=== PATIENT | female | born 1985 | race African-American/Black ===

== ENCOUNTER 2016-08-09 12:36 | Emergency (ER) | payer SELFPAY ==
--- NOTE | 2016-08-09 14:06 | UC ---
Shoulder Pain HPI - HPI Summary HPI Summary: The patient comes in today for: 1. Left shoulder pain: Onset: 8 months ago. It never got better. It got worse. Palliative/provocative: Not moving it makes it better. Abduction makes it worse. Quality: Sharp Region: Posterior shoulder (superior to the scapula). Severity: 6/10 with rest. Time: Constant. Associated symptoms: Event: No injury. She saw her regular provider who did not say what her diagnosis was. She did not get any medication. X-ray of the shoulder in December of 2015 was "OK." Previous treatment: She has only taken Tylenol for it. * - History of Current Complaint Chief Complaint: UCUpperExtremity Stated Complaint: SHOULDER PAIN Time Seen by Provider: 08/09/16 14:00 Hx Last Menstrual Period: 07/22/16 ?: No - Allergies/Home Medications Allergies/Adverse Reactions: Allergies Allergy/AdvReac Type Severity Reaction Status Date / Time No Known Allergies Allergy Verified 08/09/16 13:10 Home Medications: Home Medications Acetaminophen [Tylenol] 2 tab PO Q4HR PRN 08/09/16 [History Confirmed 08/09/16] PMH/Surg Hx/FS Hx/Imm Hx Previously Healthy: Yes Endocrine History Of: Denies: Diabetes, Thyroid Disease, Hyperthyroidism, Hypothyroidism, Dyslipidemia Cardiovascular History Of: Denies: Cardiac Disorders, Hypertension, Pacemaker/ICD, Myocardial Infarction , Congestive Heart Failure, Atrial Fibrillation, Deep Vein Thrombosis, Bleeding Disorders Respiratory History Of: Denies: COPD, Asthma, Bronchitis, Pneumonia, Pulmonary Embolism GI/ History Of: Denies: Gastroesophageal Reflux, Ulcer, Gastrointestinal Bleed, Gall Bladder Disease, Kidney Stones, Diverticulitis, Renal Disease, Urosepsis Neurological History Of: Denies: TIA, CVA, Dementia, Seizures, Migraine Psychological History Of: Denies: Anxiety, Depression, Bipolar Disorder, Schizophrenia, Post Traumatic Stress Disorder Cancer History Of: Denies: Lung Cancer, Colorectal Cancer, Breast Cancer, Prostate Cancer, Cervical Cancer Other History Of: Negative For: HIV, Hepatitis B, Hepatitis C, Anticoagulant Therapy - Surgical History Surgical History: None Surgery Procedure, Year, and Place: 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 - Family History Known Family History: Positive: Hypertension Negative: Cardiac Disease - Social History Occupation: Employed Full-time Alcohol Use: None Substance Use Type: None Smoking Status (MU): Never Smoked Tobacco Household Exposure Type: Cigarettes Review of Systems Constitutional: Negative Skin: Negative Eyes: Negative ENT: Negative Respiratory: Negative Cardiovascular: Negative Gastrointestinal: Negative Genitourinary: Negative Musculoskeletal: Arthralgia, Myalgia All Other Systems Reviewed And Are Negative: Yes Physical Exam Triage Information Reviewed: Yes Appearance: Well-Appearing, No Pain Distress - When sitting., Well-Nourished, Obese Vital Signs: Initial Vital Signs Temp 98.3 F 08/09/16 13:11 Pulse 91 08/09/16 13:11 Resp 16 08/09/16 13:11 BP 120/67 08/09/16 13:11 Pulse Ox 98 08/09/16 13:11 Eyes: Positive: Conjunctiva Clear. Negative: Discharge ENT: Positive: Hearing grossly normal, Other: - NOt able to see the TM due to cerumen buildup.. Negative: Pharyngeal erythema, Nasal congestion, Nasal drainage Dental: Negative: Gross Decay/Caries @, Dental Fracture @ Neck: Positive: Supple, Nontender, No Lymphadenopathy. Negative: Nuchal Rigidity Respiratory: Positive: Lungs clear, No respiratory distress, No accessory muscle use. Negative: Rhonchi, Wheezing Cardiovascular: Positive: RRR, No Murmur Abdomen Description: Positive: Nontender, No Organomegaly, Soft Musculoskeletal: Positive: Other: - Left shoulder: She had tenderness to palpation of the trapezius superior to the left scapula and along the medial border of the left scapula. Palpation of these areas did reproduce her shoulder pain. There was also tenderness to palpation of the coracoid process and the biceps tendon on the left. There was tenderness to palpation of the AC joint and with abduction. Neurological: Positive: Alert, Muscle Tone Normal Psychological: Positive: Age Appropriate Behavior, Consolable Skin: Negative: rashes, breakdown Shoulder Course/Dx - Differential Dx/Diagnosis Provider Diagnoses: Left shoulder pain (supraspinatus and biceps tendonitis). Left shoulder muscle strain Discharge - Discharge Plan Condition: Stable Disposition: HOME Forms: *Work Release Referrals: [facility] [Outside] No Primary Care Phys,NOPCP [Primary Care Provider] - 1 Week (Please see your primary care provider in about 1-2 weeks to see how well you are doing. If you don't have a primary care provider, please contact the physician referral service. If you can't get in timely, please you may come back to see us until you can. If you get worse, please be seen sooner by us or the ER.)
== END 2016-08-09 14:30 | disposition home or self-care (01) ==
LOC: UCEAST 12:36
DX: M75.22 Bicipital tendinitis, left shoulder (principal); S46.912A Strain of unspecified muscle, fascia and tendon at shoulder and upper arm level, left arm, initial encounter; X58.XXXA Exposure to other specified factors, initial encounter; Y92.9 Unspecified place or not applicable
CPT/HCPCS: 99212; G0463

== ENCOUNTER 2016-09-23 21:42 | Emergency (ER) | payer OTHER ==
[2016-09-23] MEDS ORDERED: diPHENhydraMINE IV* 50 MG/ML 1 ml VIAL (BENADRYL) IV ONE (23:53)
[2016-09-23] MEDS ORDERED: Ketorolac INJ* 30 MG/ML 1 ML VIAL IV ONE (23:53)
[2016-09-23] MEDS ORDERED: NS 0.9% 1000 ML* 1,000 ML IV ONE (23:53)
[2016-09-23] MEDS ORDERED: Metoclopramide IV* 5 MG/ML 2 ML VIAL IV ONE (23:53)
--- NOTE | 2016-09-24 00:21 | ED ---
Influenza-Like Illness - HPI Summary HPI Summary: Patient presents with a cough and feeling of SOB since since yesterday. She has a recent history asthma and was given an inhaler by her PCP 5 days ago which she has used without relief. She also has a migraine that has not responded with her usual medication. She has felt febrile and has body aches. She denies neck stiffness, nasal congestion, wheezing, N/V/D or ear ache. - History of Current Complaint Chief Complaint: EDUpperRespComplaint Time Seen by Provider: 09/23/16 23:13 Hx Obtained From: Patient Onset/Duration: Gradual Onset Severity: Moderate Associated Signs & Symptoms: Fever - 101.7, Myalgia, Cough, Headache Related Hx: Possible Flu/Infectious Exposure - Allergy/Home Medications Allergies/Adverse Reactions: Allergies Allergy/AdvReac Type Severity Reaction Status Date / Time No Known Allergies Allergy Verified 08/09/16 13:10 PMH/Surg Hx/FS Hx/Imm Hx Endocrine/Hematology History: Denies: Hx Anticoagulant Therapy, Hx Diabetes, Hx Thyroid Disease Cardiovascular History: Denies: Hx Congestive Heart Failure, Hx Deep Vein Thrombosis, Hx Hypertension , Hx Myocardial Infarction, Hx Pacemaker/ICD Respiratory History: Reports: Other Respiratory Problems/Disorders - allergies to pets and outdoor allergens Denies: Hx Asthma, Hx Chronic Obstructive Pulmonary Disease (COPD), Hx Lung Cancer, Hx Pneumonia, Hx Pulmonary Embolism GI History: Denies: Hx Gall Bladder Disease, Hx Gastrointestinal Bleed, Hx Ulcer, Hx Urosepsis History: Denies: Hx Kidney Stones, Hx Renal Disease Neurological History: Denies: Hx Dementia, Hx Migraine, Hx Seizures, Hx Transient Ischemic Attacks (TIA) Psychiatric History: Denies: Hx Anxiety, Hx Depression, Hx Schizophrenia, Hx Bipolar Disorder - Surgical History Surgery Procedure, Year, and Place: 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 Infectious Disease History: No Infectious Disease History: Denies: Traveled Outside the [place] in Last 30 Days - Family History Known Family History: Positive: None, Hypertension Negative: Cardiac Disease - Social History Occupation: Unemployed Lives: With Family Alcohol Use: None Substance Use Type: Reports: None Smoking Status (MU): Never Smoked Tobacco Review of Systems Positive: Fever, Chills, Fatigue Negative: Sore Throat, Ear Ache Negative: Chest Pain Positive: Shortness Of Breath, Cough Negative: Abdominal Pain, Vomiting, Diarrhea, Nausea Positive: no symptoms reported Positive: Myalgia. Negative: Edema Positive: Headache. Negative: Weakness, Paresthesia, Numbness All Other Systems Reviewed And Are Negative: Yes Physical Exam Triage Information Reviewed: Yes Vital Signs On Initial Exam: Initial Vitals Temp Pulse Resp BP Pulse Ox 99.7 F 94 18 131/95 98 09/23/16 21:46 09/23/16 21:46 09/23/16 21:46 09/23/16 21:46 09/23/16 21:46 Vital Signs Reviewed: Yes Appearance: Positive: Well-Appearing, No Pain Distress, Obese Skin: Positive: Warm, Skin Color Reflects Adequate Perfusion, Dry, Soft Head/Face: Positive: Normal Head/Face Inspection Eyes: Positive: EOMI, LEVAR, Conjunctiva Clear ENT: Positive: Hearing grossly normal, Pharynx normal, TMs normal Neck: Positive: Supple, Nontender, No Lymphadenopathy Respiratory/Lung Sounds: Positive: Clear to Auscultation, Breath Sounds Present Cardiovascular: Positive: RRR Abdomen Description: Positive: Nontender, Soft. Negative: CVA Tenderness (R), CVA Tenderness (L) Bowel Sounds: Positive: Present Musculoskeletal: Negative: Edema Left, Edema Right Neurological: Positive: Sensory/Motor Intact, Alert, Oriented to Person Place, Time, CN Intact II-III, NV Bundle Intact Distally Psychiatric: Positive: Affect/Mood Appropriate AVPU Assessment: Alert Diagnostics - Vital Signs Vital Signs Temp Pulse Resp BP Pulse Ox 09/23/16 23:06 100.7 F 101 18 144/96 95 09/23/16 22:41 101.7 F 95 18 129/86 95 09/23/16 21:46 99.7 F 94 18 131/95 98 - Laboratory Lab Results: Negative influenza Lab Statement: Any lab studies that have been ordered have been reviewed, and results considered in the medical decision making process. Re-Evaluation - Re-Evaluation First Eval Change: Improved - headache has resolved. Flu Symptom Course/Dx - Course Course Of Treatment: Multiple attempts were made to draw the patient's blood without success. She will follow-up with her PCP if her symptoms persist for further evaluation, which can include blood work as well. - Diagnoses Differential Diagnosis/HQI/PQRI: Positive: Bronchitis, Influenza, Pneumonia, Upper Respiratory Infection Provider Diagnoses: Migraine, Viral syndrome Discharge - Discharge Plan Condition: Stable Disposition: HOME Patient Education Materials: Viral Syndrome (ED), Migraine Headache (ED) Forms: *Work Release Referrals: Erwin Hampton MD [Primary Care Provider] - Additional Instructions: Please follow-up with your primary care provider if symptoms persist. Use over the counter medication for your symptoms and your migraine medication as needed. Return to the emergency department if symptoms worsen.
[2016-09-24 02:01] VITALS: BP 112/77
== END 2016-09-24 02:21 | disposition home or self-care (01) ==
LOC: ED 21:42
DX: G43.909 Migraine, unspecified, not intractable, without status migrainosus (principal); B34.9 Viral infection, unspecified; R50.9 Fever, unspecified; R05 Cough; R51 Headache; R06.02 Shortness of breath; R53.83 Other fatigue
CPT/HCPCS: 87502; 96374; 96375; 99283; J1200; J1885

== ENCOUNTER 2016-12-30 11:51 | Emergency (ER) | payer OTHER ==
[2016-12-30 11:55] VITALS: BP 113/75
--- NOTE | 2016-12-30 13:14 | RAD ---
HISTORY: Right ankle pain, injury COMPARISONS: None VIEWS: 4, Frontal, lateral, and oblique views of the right ankle FINDINGS: BONE DENSITY: Normal. BONES: There is no displaced fracture. JOINTS: There is no arthropathy. ALIGNMENT: There is no dislocation. SOFT TISSUES: Unremarkable. OTHER FINDINGS: None. IMPRESSION: NO ACUTE OSSEOUS INJURY. IF SYMPTOMS PERSIST, RECOMMEND REPEAT IMAGING.
--- NOTE | 2016-12-30 14:00 | ED ---
Lower Extremity - HPI Summary HPI Summary: 31 female presents to ED with complaints of right ankle pain that began yesterday after tripping down some stairs. She twisted her ankle and has since had pain. Admits to swelling. Has been taking ibuprofen without relief. Last dose as last night. Trouble bearing weight although is somewhat able. Hurts to walk. Wearing joel bandage. No other injuries. Did not hit head. No bruising. No numbness/tingling. No PMHx. Has sprained ankle in the past. - History of Current Complaint Chief Complaint: EDExtremityLower Stated Complaint: RT ANKLE INJURY Time Seen by Provider: 12/30/16 11:59 Hx Obtained From: Patient Hx Last Menstrual Period: 07/22/16 Mechanism Of Injury: Fall From Height Of: - 3 steps when walking down, Twisted Onset of Pain: Immediate, Post Accident Onset/Duration: Days - 2 days Severity Initially: Moderate Severity Currently: Severe Pain Intensity: 10 Pain Scale Used: 0-10 Numeric Timing: Constant Location: Is Discrete @ - right ankle Character Of Pain: Sharp, Aching Associated Signs And Symptoms: Positive: Swelling. Negative: Redness, Bruising , Knee Pain Aggravating Factor(s): Standing, Ambulation, Movement, Weight Bearing Alleviating Factor(s): Rest Able to Bear Weight: Yes - causes pain - Allergies/Home Medications Allergies/Adverse Reactions: Allergies Allergy/AdvReac Type Severity Reaction Status Date / Time No Known Allergies Allergy Verified 12/30/16 12:23 PMH/Surg Hx/FS Hx/Imm Hx Endocrine/Hematology History: Denies: Hx Anticoagulant Therapy, Hx Diabetes, Hx Thyroid Disease Cardiovascular History: Denies: Hx Congestive Heart Failure, Hx Deep Vein Thrombosis, Hx Hypertension , Hx Myocardial Infarction, Hx Pacemaker/ICD Respiratory History: Reports: Other Respiratory Problems/Disorders - allergies to pets and outdoor allergens Denies: Hx Asthma, Hx Chronic Obstructive Pulmonary Disease (COPD), Hx Lung Cancer, Hx Pneumonia, Hx Pulmonary Embolism GI History: Denies: Hx Gall Bladder Disease, Hx Gastrointestinal Bleed, Hx Ulcer, Hx Urosepsis History: Denies: Hx Kidney Stones, Hx Renal Disease Neurological History: Denies: Hx Dementia, Hx Migraine, Hx Seizures, Hx Transient Ischemic Attacks (TIA) Psychiatric History: Denies: Hx Anxiety, Hx Depression, Hx Schizophrenia, Hx Bipolar Disorder - Surgical History Surgery Procedure, Year, and Place: 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 - Immunization History Immunizations Up to Date: Yes Infectious Disease History: No Infectious Disease History: Denies: Traveled Outside the [place] in Last 30 Days - Family History Known Family History: Positive: None, Hypertension Negative: Cardiac Disease - Social History Alcohol Use: None Substance Use Type: Reports: None Smoking Status (MU): Never Smoked Tobacco Review of Systems Constitutional: Negative Cardiovascular: Negative Respiratory: Negative Positive: Arthralgia, Myalgia, Decreased ROM, Edema - right ankle Skin: Negative Neurological: Negative All Other Systems Reviewed And Are Negative: Yes Physical Exam Triage Information Reviewed: Yes Vital Signs On Initial Exam: Initial Vitals Temp Pulse Resp BP Pulse Ox 97.6 F 88 16 113/75 97 12/30/16 11:53 12/30/16 11:53 12/30/16 11:53 12/30/16 11:53 12/30/16 11:53 Vital Signs Reviewed: Yes Appearance: Positive: Well-Appearing, Well-Nourished, Pain Distress - moderate with palpation and movement of right ankle Skin: Positive: Warm, Skin Color Reflects Adequate Perfusion, Dry. Negative: Cold, Cyanosis @, Pale, Erythema @ Head/Face: Positive: Normal Head/Face Inspection Eyes: Positive: Conjunctiva Clear ENT: Positive: Hearing grossly normal Neck: Positive: Supple, Nontender Respiratory/Lung Sounds: Positive: Clear to Auscultation, Breath Sounds Present , Rales, Rhonchi, Wheezes. Negative: Decreased Breath Sounds Cardiovascular: Positive: Normal, RRR, Pulses are Symmetrical in both Upper and Lower Extremities - 2+ pedal b/l. Negative: Murmur, Rub Musculoskeletal: Positive: Strength/ROM Intact - rest of MSK exam normal besides right ankle, Limited @ - right ankle due to pain with any ROM, Pain @ - palpation of lateral malleolous right ankle, Edema Right - ankle at lateral malleolous, Other - no crepitus, step off or obvious deformity. negative thomspon test, achilles intact. Negative: Interruption @, David Sign Left, David Sign Right Neurological: Positive: Normal, Sensory/Motor Intact - sensation intact, Alert, Oriented to Person Place, Time, CN Intact II-III, Reflexes Intact, NV Bundle Intact Distally, Unable to Assess Gait - due to pain, injury Psychiatric: Positive: Normal Diagnostics - Vital Signs Vital Signs Temp Pulse Resp BP Pulse Ox 12/30/16 11:54 97.6 F 88 16 113/75 98 12/30/16 11:53 97.6 F 88 16 113/75 97 - Laboratory Lab Statement: Any lab studies that have been ordered have been reviewed, and results considered in the medical decision making process. - Radiology right ankle Xray Interpretation: No Acute Changes - NO ACUTE OSSEOUS INJURY. IF SYMPTOMS PERSIST, RECOMMEND REPEAT IMAGING. Radiology Interpretation Completed By: Radiologist Lower Extremity Course/Dx - Course Course Of Treatment: given toradol for pain since she has not had any pain management today. iburpofen wasn't helping. x-ray obtained and negative. appears to be suffering from a sprain. RICE and NSAIDs. crutches, brace. follow up pcp. aware of worsening signs and symptoms to watch out for. - Diagnoses Differential Diagnosis/HQI/PQRI: Positive: Contusion, Dislocation, Fracture ( Closed), Sprain, Strain Provider Diagnoses: Right ankle sprain Discharge - Discharge Plan Condition: Stable Disposition: HOME Prescriptions: HYDROcodone/ACETAMIN 5-325 MG* [[place] 5-325 TAB*] 1 tab PO Q4H PRN #5 tab MDD 2 PRN Reason: Pain Patient Education Materials: Ankle Sprain (ED) Referrals: Erwin Hampton MD [Primary Care Provider] - Additional Instructions: Rest, ice and elevate ankle. Continue ibuprofen as desired for pain, starting tomorrow, you do not need to take any more tonight. Take with food. Supplement with pain medication prescribed in between only as needed. Crutches and not weight bearing. Follow up PCP If new symptoms develop, or worsening symptoms please seek medical attention.
[2016-12-30] MEDS ORDERED: Ketorolac INJ* 60 MG/2 ML VIAL IM ONE (14:27)
== END 2016-12-30 15:12 | disposition home or self-care (01) ==
LOC: ED 11:51
DX: S93.401A Sprain of unspecified ligament of right ankle, initial encounter (principal); W18.09XA Striking against other object with subsequent fall, initial encounter; Y92.9 Unspecified place or not applicable; W10.9XXA Fall (on) (from) unspecified stairs and steps, initial encounter
CPT/HCPCS: 96372; 99284; J1885

== ENCOUNTER 2017-06-07 08:43 | Day surgery (SDC) | payer OTHER ==
--- NOTE | 2017-06-03 09:03 | HP ---
PREOPERATIVE HISTORY AND PHYSICAL: DATE OF ADMISSION/SURGERY: 06/07/17 - OR [facility] DATE OF OFFICE VISIT/ENCOUNTER: 05/30/17 ATTENDING SURGEON: Dr. Shanda Breen.* (DICTATED BY MIRTHA MORILLO) PROCEDURE: Left wrist ganglion cyst excision. CHIEF COMPLAINT: Cyst, left wrist. HISTORY OF PRESENT ILLNESS: This is a 32-year-old female who complains of a painful mass on the dorsal aspect of her left wrist. She has had it for quite some time on and off since 2010, but recently it got about twice as big as it was before and now has become painful and bothersome. She rates the pain as 9/ 10. It does not limit her range of motion and she denies any associated numbness or tingling. She would like to have it removed surgically. PAST MEDICAL HISTORY: 1. History of back pain. 2. Asthma. PAST SURGICAL HISTORY: Cyst removal from face as a baby. CURRENT MEDICATIONS: 1. Claritin 10 mg daily. 2. EpiPen p.r.n. 3. Flonase allergy relief 15 mcg/ACT once per each nostril twice daily. 4. Symbicort 160-4.5 mcg/ACT 2 puffs twice a day. 5. Ventolin HFA inhaler 2 puffs 4 times a day p.r.n. 6. Zyrtec allergy 10 mg daily. ALLERGIES: No known drug allergies. The patient is allergic to tree nuts which cause anaphylaxis. FAMILY MEDICAL HISTORY: Noncontributory. 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 She denies tobacco use, recreational drug use and does not drink alcohol. REVIEW OF SYSTEMS: General: Negative for fevers, chills, or night sweats. No known anesthesia problems. HEENT: Negative for headache, lightheadedness, or syncopal episodes. Integumentary: Negative for abrasions, lesions, or open wounds. Cardiothoracic: Negative for hypertension, chest pain, palpitations, or edema. Pulmonary: Negative for shortness of breath with exertion, chronic cough, COPD. GI: Negative for nausea, vomiting, diarrhea, constipation, and GERD. : Negative for nocturia, urinary frequency or urgency, history of UTIs , or kidney problems. Musculoskeletal: Positive for current complaint. Neurological: Negative for paresthesias, numbness, history of seizure, stroke, or epilepsy. Endocrine: Negative for diabetes and thyroid issues. Hematologic : Negative for easy bruising, anemia, excessive bleeding, or history of DVT. Infectious Disease: Negative for history of MRSA, hepatitis C, HIV. PHYSICAL EXAMINATION GENERAL: Well-developed, well-nourished, 32-year-old female, in no acute distress. VITAL SIGNS: Height 5 feet 3 inches, weight 260 pounds. Pulse rate 74, blood pressure 110/76. HEENT: Normocephalic, atraumatic. Pupils are equal, round, and reactive to light and accommodation. Extraocular movements are intact. Throat is clear. NECK: Supple. No palpable lymph nodes. PULMONARY: Lungs are clear to auscultation bilaterally. No wheezes, rales, or rhonchi. CARDIOVASCULAR: Regular rate and rhythm. S1, S2. No murmurs, rubs, or gallops. No edema. ABDOMEN: Positive bowel sounds. Soft, nontender. NEUROLOGICAL: Alert and oriented x3. Cranial nerves II through XII are intact. Sensation is intact to light touch. PERIPHERAL VASCULAR: 2+ radial and ulnar pulses. Negative Pedro test. MUSCULOSKELETAL: On exam of her left wrist, there is a fairly large cystic mass on the dorsal aspect of the radiocarpal joint. It measures about 1.5 cm in diameter and is tender to palpation. She has full range of motion of the wrist, but pain is extreme. She can make a full fist. Skin is intact. Neurovascularly, function is intact. IMAGING STUDIES: AP, lateral, and oblique x-rays of her left wrist appeared normal. ASSESSMENT: Left dorsal wrist ganglion. PLAN: The patient is scheduled to undergo a left wrist ganglion cyst excision with Dr. Breen on 06/07/17. She will return to the office 10 to 14 days postop for followup and suture removal. A prescription for Tramadol was e-scribed to the patient's pharmacy for postoperative pain management. MIRTHA MORILLO [id number]/[facility] #: [id number] KATIA
[~2017-06-07 08:43] MED LIST: Buffered Lidocaine 0.9% SYRIN* 5 ML/SYR SYRINGE INTRADERM ONE; Lidocaine 1% INJ* 10 MG/ML 30 ML SDV ONE
[2017-06-07] MEDS ORDERED: fentaNYL* 50 MCG/ML 2 ML VIAL (100 MCG VIAL) ONE (09:51)
[2017-06-07] MEDS ORDERED: Propofol* 10 MG/ML 20 ML BTL IV PUSH ONE (09:51)
[2017-06-07] MEDS ORDERED: Midazolam* 1 MG/ML 2 ML VIAL (2 MG) ONE (09:51)
[2017-06-07] MEDS ORDERED: Naloxone* 0.4 MG/ML 1 ML VIAL IV PRN (10:01)
[2017-06-07 10:25] VITALS: BP 119/73
--- NOTE | 2017-06-07 21:13 | OP ---
DATE OF OPERATION: 06/07/17 [facility] DATE OF : 87 SURGEON: Dr. Breen. ELECTRICAL TEST TECHNICIAN: MIRTHA Osman ANESTHESIA: Local MAC. PRE-OP DIAGNOSIS: Left wrist ganglion. POST-OP DIAGNOSIS: Left wrist ganglion. OPERATIVE PROCEDURE: Removal, left wrist ganglion. ESTIMATED BLOOD LOSS: Zero. TOURNIQUET TIME: 10 minutes. INDICATIONS: Kenzie is a 32-year-old female who has a large painful mass on the dorsal aspect of her left wrist. She presents for removal. DESCRIPTION OF PROCEDURE: The patient was brought to the operating room, was given a sedation anesthetic and a local infiltration of 10 cc of 1% plain lidocaine overlying the left wrist mass. Skin of her left upper extremity was prepped and draped in the usual sterile fashion. The hand and forearm were exsanguinated and the tourniquet elevated to 250 mmHg. A transverse incision was made centered over the mass. We dissected bluntly through the subcutaneous tissue. Extensor tendons were retracted by the surgical rn, Bethany Almonte. The cyst was traced with 2 stalk down the wrist capsule and was removed with the small portion of the wrist joint capsule dorsal aspect of the scapholunate ligament and the edge of the capsule cauterized with the Bovie. The wound was irrigated and skin edges reapproximated with 4-0 nylon suture. The wound was dressed with Xeroform, 4x4, Webril, and an Flako wrap. The patient tolerated the procedure well and was brought to the recovery room in good condition. [id number]/[facility] #: [id number] KATIA
== END 2017-06-07 10:45 | disposition home or self-care (01) ==
LOC: OREAST 08:43
PROVIDERS: ATTEND Orthopaedic Surgery
DX: M67.432 Ganglion, left wrist (principal); J45.909 Unspecified asthma, uncomplicated
CPT/HCPCS: 81025; 88304; J2250; J2704; J3010

== ENCOUNTER 2017-07-29 10:33 | Emergency (ER) | payer MEDICAID, OTHER ==
[2017-07-29 11:59] LABS: ABS Basophils 0.1 10^3/ul (0-0.2); ABS Eosinophils 0.2 10^3/ul (0-0.6); ABS Lymphocytes 2.2 10^3/ul (1.0-4.8); ABS Monocytes 0.5 10^3/ul (0-0.8); ABS Neutrophils 3.8 10^3/ul (1.5-7.7); ABS Nucleated RBC 0 10^3/ul; Eosinophil % 2.9 % (0-6); Hematocrit 40 % (35-47); Hemoglobin 13.4 g/dl (12.0-16.0); Lymphocyte % 32.9 % (25-47); Mean Corpuscular HGB Conc 34 g/dl (31-36); Mean Corpuscular Hemoglobin 29 pg (27-31); Mean Corpuscular Volume 86 fL (80-97); Mean Platelet Volume 7.5 um3 (7.4-10.4); Nucleated Red Blood Cells % 0.1; Platelet Count 283 10^3/ul (150-450); Red Blood Count 4.58 10^6/ul (4.0-5.4); Red Cell Distribution Width 14 % (10.5-15); White Blood Count 6.8 10^3/ul (3.5-10.8)
[2017-07-29 12:08] LABS: INR 0.9 (0.77-1.02)
--- NOTE | 2017-07-29 12:10 | ED ---
Abdominal Pain/Female - HPI Summary HPI Summary: Patient here with upper abdominal pain for the past 4 days. This is "sharp and dull and constant ". Seems to be a little worse with eating foods such as fish , eggs and other fatty foods. Was able to drink water and pain was not as bad. She's tried Aleve without relief nor exacerbation. She reports associated symptoms of nausea however does not have any at present. Denies fevers, chills , vomiting, diarrhea, chest pain, shortness of breath, melena, hematochezia, vaginal irritation/discharge. Last bowel movement this morning which she reports as "green" which is normal for her - this was non-painful nor did it provide relief. Last menstrual period was 2 weeks ago - these are irregular and have been - she is unsure if she has PCOS - she was on control in the past which made cycle regular. However she gained weight so stopped taking these. No personal history of ovarian cysts, torsion or uterine issues however her sister has a history of ovarian cyst. She has a partner but denies sexual activity and no h/o STD's or vaginal infection. No h/o GERD. She does admit this pain happened once several years ago and she came to the emergency department for evaluation. She reports nothing was identified and her symptoms resolved on their own over time. - History of Current Complaint Chief Complaint: EDAbdPain Stated Complaint: ABD PAIN Time Seen by Provider: 07/29/17 11:11 Hx Obtained From: Patient Hx Last Menstrual Period: 07/22/16 Pain Intensity: 6 Allergies/Adverse Reactions: Allergies Allergy/AdvReac Type Severity Reaction Status Date / Time Tree Nuts Allergy anaphylaxis Verified 06/07/17 08:57 environmental Allergy sneezing, Uncoded 06/07/17 08:57 itchy eyes Home Medications: Home Medications Budesonide/Formote 160/4.5(NF) [Symbicort 160/4.5 (NF)] 2 puff INH BID 07/29/17 [History Confirmed 07/29/17] Cetirizine* [ZyrTEC 10 MG TAB*] 10 mg PO DAILY PRN 07/29/17 [History Confirmed 07/29/17] Ergocalciferol (Vitamin D2) [Vitamin D2] 50,000 unit PO WEEKLY 07/29/17 [ History Confirmed 07/29/17] Fluticasone NASAL SPRAY 50MCG* [Flonase NASAL SPRAY 50MCG*] 2 spray BOTH NARES DAILY 07/29/17 [History Confirmed 07/29/17] PMH/Surg Hx/FS Hx/Imm Hx Previously Healthy: Yes - admits to elevated LFT's, unsure why Endocrine/Hematology History: Denies: Hx Anticoagulant Therapy, Hx Diabetes, Hx Thyroid Disease Cardiovascular History: Denies: Hx Congestive Heart Failure, Hx Deep Vein Thrombosis, Hx Hypertension , Hx Myocardial Infarction, Hx Pacemaker/ICD, Other Cardiovascular Problems/ Disorders Respiratory History: Reports: Hx Asthma - will bring inhalers, Other Respiratory Problems/Disorders - allergies to pets and outdoor allergens Denies: Hx Chronic Obstructive Pulmonary Disease (COPD), Hx Lung Cancer, Hx Pneumonia, Hx Pulmonary Embolism GI History: Denies: Hx Gall Bladder Disease, Hx Gastrointestinal Bleed, Hx Ulcer, Hx Urosepsis History: Denies: Hx Kidney Stones, Hx Renal Disease Sensory History: Reports: Hx Contacts or Glasses - glasses Denies: Hx Hearing Aid Opthamlomology History: Reports: Hx Contacts or Glasses - glasses Neurological History: Reports: Hx Headaches Denies: Hx Dementia, Hx Migraine, Hx Seizures, Hx Transient Ischemic Attacks (TIA) Psychiatric History: Denies: Hx Anxiety, Hx Depression, Hx Schizophrenia, Hx Bipolar Disorder - Surgical History Surgery Procedure, Year, and Place: 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 Hx Anesthesia Reactions: No Infectious Disease History: No Infectious Disease History: Denies: Traveled Outside the [place] in Last 30 Days - Family History Known Family History: Positive: None, Hypertension Negative: Cardiac Disease - Social History Alcohol Use: None Substance Use Type: Reports: None Smoking Status (MU): Never Smoked Tobacco Review of Systems Constitutional: Negative Negative: Fever, Chills, Fatigue Cardiovascular: Negative Negative: Palpitations, Chest Pain Respiratory: Negative Negative: Shortness Of Breath, Cough Positive: Abdominal Pain, Nausea - intermittent. Negative: Vomiting, Diarrhea Genitourinary: Negative Negative: burning, dysuria, discharge, frequency, flank pain, hematuria, incontinence, pain, urgency Musculoskeletal: Negative Skin: Negative Neurological: Negative Psychological: Normal All Other Systems Reviewed And Are Negative: Yes Physical Exam Triage Information Reviewed: Yes Vital Signs On Initial Exam: Initial Vitals Temp Pulse Resp BP Pulse Ox 98.1 F 77 20 137/87 97 07/29/17 10:36 07/29/17 10:36 07/29/17 10:36 07/29/17 10:36 07/29/17 10:36 Vital Signs Reviewed: Yes Appearance: Positive: Well-Appearing, No Pain Distress, Obese Skin: Positive: Warm, Skin Color Reflects Adequate Perfusion, Dry Head/Face: Positive: Normal Head/Face Inspection Eyes: Positive: Normal, EOMI, Conjunctiva Clear - anicteric sclera ENT: Positive: Normal ENT inspection, Hearing grossly normal, Pharynx normal - mucosa moist, TMs normal. Negative: Nasal congestion, Nasal drainage Neck: Positive: Supple Respiratory/Lung Sounds: Positive: Clear to Auscultation, Breath Sounds Present. Negative: Rales, Rhonchi, Wheezes Cardiovascular: Positive: Normal, RRR, S1, S2 Abdomen Description: Positive: No Organomegaly - difficult to assess 2ndry to pt 's body habitus, Soft, Other: - Equivocal Stevens's sign - diffusely TTP over upper, mid and Left lower ab - no rebounding; RLQ is only area that is NTTP. Negative: CVA Tenderness (R), CVA Tenderness (L) Bowel Sounds: Positive: Present - distant bowel sounds Musculoskeletal: Positive: Normal, Strength/ROM Intact Neurological: Positive: Normal, Sensory/Motor Intact, Alert, Oriented to Person Place, Time, CN Intact II-III Psychiatric: Positive: Normal Diagnostics - Vital Signs Vital Signs Temp Pulse Resp BP Pulse Ox 07/29/17 10:36 98.1 F 77 20 137/87 97 - Laboratory Lab Results: Lab Results 07/29/17 Range/Units 11:48 WBC 6.8 (3.5-10.8) 10^3/ul RBC 4.58 (4.0-5.4) 10^6/ul Hgb 13.4 (12.0-16.0) g/dl Hct 40 (35-47) % MCV 86 (80-97) fL MCH 29 (27-31) pg MCHC 34 (31-36) g/dl RDW 14 (10.5-15) % Plt Count 283 (150-450) 10^3/ul MPV 7.5 (7.4-10.4) um3 Neut % (Auto) 56.5 (38-83) % Lymph % (Auto) 32.9 (25-47) % [place] % (Auto) 7.0 (0-7) % Eos % (Auto) 2.9 (0-6) % Baso % (Auto) 0.7 (0-2) % Absolute Neuts (auto) 3.8 (1.5-7.7) 10^3/ul Absolute Lymphs (auto) 2.2 (1.0-4.8) 10^3/ul Absolute Monos (auto) 0.5 (0-0.8) 10^3/ul Absolute Eos (auto) 0.2 (0-0.6) 10^3/ul Absolute Basos (auto) 0.1 (0-0.2) 10^3/ul Absolute Nucleated RBC 0 10^3/ul Nucleated RBC % 0.1 Result Diagrams: 07/29/17 11:48 07/29/17 11:48 Lab Statement: Any lab studies that have been ordered have been reviewed, and results considered in the medical decision making process. Abdominal Pain Fem Course/Dx - Course Course Of Treatment: Pt presents w/ 4 days h/o upper ab pain - has tried aleve only w/o relief. H/o same "several years ago" w/o known cause despite medical w/ u then. U/A w/ RBC's, bacteria and leukocytes. Possible UTI vs. contamination - pt would like to wait for final culture before starting an antibiotic as she has no urinary sx, no CVA tenderness and afebrile w/o h/o urinary tract infection. Other possibility is irritation of the liver/digestive tract from fatty infiltrate. She has had elevated liver enzymes since May 2017 without known cause or guidance for further testing for hepatitis, etc. Encouraged a liquid, fat-free diet for the next 48 hours and close follow-up with her PCP. Hepatitis panel intiated here - may review results w/ PCP. Reviewed danger s/sx of when to return to ED. Pt agrees w/ plan. - Diagnoses Provider Diagnoses: Abdominal pain, Hepatic steatosis Discharge - Sign-Out/Discharge Documenting (check all that apply): Discharge - Discharge Plan Condition: Stable Disposition: HOME Patient Education Materials: Acute Abdominal Pain (ED), Non-Alcoholic Fatty Liver Disease (ED) Referrals: Erwin Hampton MD [Primary Care Provider] - Additional Instructions: The definitive cause of your abdominal pain was not identified today. However, it is noted that your liver enzymes are elevated in conjunction with a "fatty liver". It is important that you reduce her overall dietary fat intake but especially over the next week. This may be replaced by a clear low residue diet and close follow-up with PCP. If you feel better, you may make another appointment at [facility] for guidance through healthy lifestyle programs to continue your success. Additionally, you may try antacids such as Tums and avoid NSAID's (ie, Advil, ibuprofen, Aleve, naproxen, Aspirin) *If symptoms worsen, return to the emergency department It was also noted that your urine may have an infection. You have opted to wait a couple of days for final results. If sympomts become more apparent by tomorrow (ie. pain with urination, urinary frequency, urinary urgency, etc), feel free to call for an antibiotic. - Billing Disposition and Condition Condition: STABLE Disposition: HOME
[2017-07-29 12:17] LABS: Urine Appearance Cloudy; Urine Blood Negative (Negative); Urine Color Yellow; Urine Ketones Negative (Negative); Urine Protein Negative (Negative); Urine Specific Gravity 1.017 (1.010-1.030); Urine Urobilinogen Negative (Negative)
--- NOTE | 2017-07-29 14:11 | RAD ---
INDICATION: Abdominal pain COMPARISON: None TECHNIQUE: Longitudinal and transverse scans of the right upper quadrant were obtained. Doppler interrogation of the hepatic and portal venous system was performed. FINDINGS: Liver: There is hepatic steatosis. There are no masses . The liver is normal in size measuring 16 cm in cephalocaudal dimension. Vessels: There is normal hepatic and portal venous flow. Bile ducts: There is no evidence of intrahepatic or extrahepatic ductal dilatation. The common duct measures 0.3 cm. Gallbladder: The sonographic appearance of the gallbladder is normal. There is no evidence of cholelithiasis, thickening of the gallbladder wall, or pericholecystic fluid. Pancreas: The visualized pancreas appears normal Right kidney: The right kidney is normal in size and echogenicity. There are no masses or calculi. There is no evidence of hydronephrosis. The right kidney measures 10.1 x 4.1 x 5.0 cm. IVC and aorta: The aorta and superior vena cava appear normal. Fluid: There is no ascites. Other: None. IMPRESSION: HEPATIC STEATOSIS. NORMAL GALLBLADDER.
[2017-07-29] MEDS ORDERED: Ondansetron ODT TAB* 4 MG PO ONE (15:12)
[2017-07-29 16:04] VITALS: BP 136/91
== END 2017-07-29 16:11 | disposition home or self-care (01) ==
LOC: ED 10:33
DX: R10.10 Upper abdominal pain, unspecified (principal); N28.89 Other specified disorders of kidney and ureter
CPT/HCPCS: 36415; 76705; 80053; 80074; 81003; 81015; 83605; 83690; 83735; 84702; 85025; 85610; 85730; 86140; 87086; 99282; A9270-GY

== ENCOUNTER 2017-10-19 17:55 | Emergency (ER) | payer MEDICAID, OTHER ==
[2017-10-19] MEDS ORDERED: Charcoal ACTIVATED* 25 GM/120 ML BTL PO ONE (18:26)
[2017-10-19 20:31] LABS: ABS Basophils 0 10^3/ul (0-0.2); ABS Eosinophils 0 10^3/ul (0-0.6); ABS Lymphocytes 1.4 10^3/ul (1.0-4.8); ABS Monocytes 0.8 10^3/ul (0-0.8); ABS Neutrophils 8.4 10^3/ul (1.5-7.7); ABS Nucleated RBC 0 10^3/ul; Eosinophil % 0.2 % (0-6); Hematocrit 36 % (35-47); Hemoglobin 12.4 g/dl (12.0-16.0); Lymphocyte % 12.8 % (25-47); Mean Corpuscular HGB Conc 34 g/dl (31-36); Mean Corpuscular Hemoglobin 29 pg (27-31); Mean Corpuscular Volume 85 fL (80-97); Mean Platelet Volume 8.2 um3 (7.4-10.4); Nucleated Red Blood Cells % 0; Platelet Count 255 10^3/ul (150-450); Red Blood Count 4.26 10^6/ul (4.00-5.40); Red Cell Distribution Width 13 % (10.5-15); White Blood Count 10.7 10^3/ul (3.5-10.8)
[2017-10-19 20:34] LABS: Urine Appearance Cloudy; Urine Blood Negative (Negative); Urine Color Yellow; Urine Ketones Trace (Negative); Urine Protein 1+(30 mg/dL) (Negative); Urine Red Blood Cell Absent (Absent); Urine Specific Gravity 1.023 (1.010-1.030); Urine Urobilinogen Negative (Negative); Urine White Blood Cell 2+(11-20/hpf) (Absent)
[2017-10-19 20:47] LABS: EGFR Non-African American 65.4 (>60)
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
[2017-10-20 04:54] LABS: EGFR Non-African American 71.2 (>60)
[2017-10-20 05:25] VITALS: BP 99/55
[2017-10-20] MEDS ORDERED: LORazepam TAB(*) 1 MG PO ONE ×2 (05:27→05:28)
[2017-10-20] MEDS ORDERED: LORazepam TAB(*) 1 MG ONE (05:31)
--- NOTE | 2017-11-05 11:27 | ED ---
Jorge Alberto Mancini Gabriel, scribed for Jeremias Clark MD on 10/20/17 at 0129 . Progress - Progress Note Progress Note: Pt was signed out from Dr. Souza awaiting MHE. After MHE by Dr. Nagy pt will be transfer. I discussed patietn care with [facility] who accepts the patient for admission. the accepting doctor is Dr. Suazo - Consult/PCP Time Called: 00:02 Course/Dx - Course Course Of Treatment: Pt was signed out from Dr. Souza awaiting MHE. After MHE by Dr. Nagy pt will be transfer. I discussed patietn care with [facility] who accepts the patient for admission. the accepting doctor is Dr. Suazo - Diagnoses Provider Diagnoses: Mood disorder due to known physiological condition, unspecified Discharge - Sign-Out/Discharge Documenting (check all that apply): Discharge/Admit/Transfer, Receiving Sign-Out Receiving patient FROM: Cl Souza - Discharge Plan Condition: Stable Disposition: PSYCHIATRIC FACILITY-OTHER Referrals: Erwin Hampton MD [Primary Care Provider] - The documentation as recorded by the Jorge Alberto vela Gabriel accurately reflects the service I personally performed and the decisions made by , Jeremias Clark MD.
== END 2017-10-20 05:26 ==
LOC: ED 17:55
DX: T39.312A Poisoning by propionic acid derivatives, intentional self-harm, initial encounter (principal); X58.XXXA Exposure to other specified factors, initial encounter; J45.909 Unspecified asthma, uncomplicated; Z82.49 Family history of ischemic heart disease and other diseases of the circulatory system; R00.0 Tachycardia, unspecified
CPT/HCPCS: 36415; 80053; 80307; 80320; 80329; 81003; 81015; 82803; 83605; 84443; 84702; 85025; 87086; 93005; 99284; A9270-GY; G0480

== ENCOUNTER 2018-02-23 12:10 | Emergency (ER) | payer OTHER ==
[2018-02-23 12:38] VITALS: BP 125/72
--- NOTE | 2018-02-23 13:13 | UC ---
Headache HPI - HPI Summary HPI Summary: Patient is 32 year old female , with past medical history significant for migraines since age 9 who presents today with left-sided headache for past 4 days, onset 02/18/18. Points to the left temporomandibular joint and left paracervical and left temporal area. this pain has continued since onset and is unable to lay on this side of her head. pt has tried otc pain relievers like ibuprofen, Motrin and Aleve without any help. There was some associated nausea but no vomiting. She denies any rash, visual disturbance or any motor or sensory loss. No sick contacts . Denies any fever, chills, cough chest pain or shortness of breath . No diaphoresis. Denies any abdominal pain, diarrhea or constipation. - History Of Current Complaint Chief Complaint: UCHeadache Stated Complaint: HEADACHE Time Seen by Provider: 02/23/18 13:11 Hx Obtained From: Patient Hx Last Menstrual Period: 07/22/16 ?: No - LMP February 04 Pain Intensity: 8 - Allergies/Home Medications Allergies/Adverse Reactions: Allergies Allergy/AdvReac Type Severity Reaction Status Date / Time Tree Nuts Allergy anaphylaxis Verified 02/23/18 12:38 environmental Allergy sneezing, Uncoded 02/23/18 12:38 itchy eyes PMH/Surg Hx/FS Hx/Imm Hx Previously Healthy: Yes Other Endocrine History: negative Other Cardiovascular History: negative Respiratory History: Asthma Other Respiratory History: negative Other GI/ History: negative Neurological History: Migraine - Since the age of 9 but does not take prophylaxis medications Other Neurological History: negative Other Psychological History: negative Other History Of: Negative For: HIV, Hepatitis B, Hepatitis C, Anticoagulant Therapy - Surgical History Surgical History: Yes Surgery Procedure, Year, and Place: 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 - Family History Known Family History: Positive: None, Hypertension Negative: Cardiac Disease - Social History Alcohol Use: Rare Substance Use Type: None Smoking Status (MU): Never Smoked Tobacco Household Exposure Type: Cigarettes Review of Systems Constitutional: Negative Skin: Negative Eyes: Negative ENT: Negative Respiratory: Negative Cardiovascular: Negative Gastrointestinal: Negative Genitourinary: Negative Motor: Negative Neurovascular: Negative Musculoskeletal: Other: - Left-sided neck pain Neurological: Headache Psychological: Negative Is Patient Immunocompromised?: No All Other Systems Reviewed And Are Negative: Yes Physical Exam - Summary Physical Exam Summary: Physical Exam: Const: Appears well. No signs of apparent distress present. Alert and oriented x 3. Musculo: Walks with a normal gait. Head/Face: Atraumatic, normocephalic on inspection. Eyes: EOMI and PERRLA in both eyes. Conjunctivae clear. No discharge noted ENT: Hearing normal, TM normal appearing bilaterally . Respiratory: Respirations are unlabored. Lungs clear to auscultation bilaterally, no wheezing , rhonchi or rales noted . CVS: Regular rate and Rhythm, S1S2 normal , no murmurs identified. Extremities: Peripheral circulation is grossly normal. Pulses 2+ Abdomen : Soft non tender , nondistended , Bowel sounds present . No guarding , rebound tenderness or rigidity noted. Skin: No lesions or rash located on the upper extremities or on the lower extremities. Neuro: Cranial nerves II to XII intact, motor and sensory intact. DTR Intact bilaterally. Mood is normal. Affect is normal. GCS of 15 Tenderness to palpation is noted at the TMJ, hurts with wide opening of the mouth C-spine: No midline tenderness. There is tenderness to palpation on the left paraspinal muscles. Has full range of motion but painful in flexion and extension Spurling test negative bilaterally Triage Information Reviewed: Yes Vital Signs: Initial Vital Signs Temp 98.8 F 02/23/18 12:35 Pulse 89 02/23/18 12:35 Resp 18 02/23/18 12:35 BP 125/72 02/23/18 12:35 Pulse Ox 100 02/23/18 12:35 Vital Signs Reviewed: Yes Headache Course/Dx - Course Course Of Treatment: During the visit today we discussed the findings which are consistent with left TMJ dysfunction and left cervical strain. We discussed further plan including option of formal physical therapy for the neck if no improvement over the next week. She was given an IM injection of Toradol 30 mg in the clinic. She will start taking naproxen 500 mg twice daily for the next week .I will prescribe the medication to the pharmacy . Patient expressed understanding . - Differential Dx/Diagnosis Provider Diagnoses: Left TMJ dysfunction. Left cervical strain with spasm of paraspinal muscles Discharge - Sign-Out/Discharge Documenting (check all that apply): Patient Departure All imaging exams completed and their final reports reviewed: No Studies - Discharge Plan Condition: Stable Disposition: HOME Prescriptions: Naproxen [Naproxen 500 mg tab] 500 mg PO BID PRN 7 Days #15 tablet.dr KEANE Reason: Pain Patient Education Materials: Cervical Strain (ED), Temporomandibular Disorder ( ED) Referrals: Erwin Hampton MD [Primary Care Provider] - 2 Days Additional Instructions: Please start taking the medication as prescribed to the pharmacy Follow up with your primary care doctor in 2 days. Return to Urgent care / ER if symptoms get worse. - Billing Disposition and Condition Condition: STABLE Disposition: Home
[2018-02-23] MEDS ORDERED: Ketorolac INJ* 30 MG/ML 1 ML VIAL IM ONE (14:22)
== END 2018-02-23 14:51 | disposition home or self-care (01) ==
LOC: UCEAST 12:10
DX: M26.602 Left temporomandibular joint disorder, unspecified (principal); S16.1XXA Strain of muscle, fascia and tendon at neck level, initial encounter; X58.XXXA Exposure to other specified factors, initial encounter; Y92.9 Unspecified place or not applicable; M62.838 Other muscle spasm
CPT/HCPCS: 96372; 99212; G0463; J1885

== ENCOUNTER 2018-09-10 12:26 | Emergency (ER) | payer OTHER ==
--- NOTE | 2018-09-10 13:01 | ED ---
Throat Pain/Nasal Congestion - HPI Summary HPI Summary: A 33 y/o F presents to ED c/o constant L eye pain onset 08/31/18. Patient does not remember getting anything into her eye, nor any trauma to her eye. Associated sx: intermittent flashes of light in the corner of her L eye -- multiple times a day; REESE and photophobia. She denies vision changes. - History of Current Complaint Chief Complaint: EDEyeProblem Time Seen by Provider: 09/10/18 12:59 Hx Obtained From: Patient Onset/Duration: Lasting Weeks, Still Present Severity: Mild - Allergies/Home Medications Allergies/Adverse Reactions: Allergies Allergy/AdvReac Type Severity Reaction Status Date / Time Tree Nuts Allergy anaphylaxis Verified 09/10/18 12:34 Home Medications: Home Medications Albuterol HFA INHALER* [Ventolin HFA Inhaler*] 1 puff INH Q4H PRN 09/10/18 [ History Confirmed 09/10/18] EPINEPHrine [Epipen] 0.3 mg IJ DAILY PRN 09/10/18 [History Confirmed 09/10/18] PMH/Surg Hx/FS Hx/Imm Hx Previously Healthy: No Endocrine/Hematology History: Denies: Hx Anticoagulant Therapy, Hx Diabetes, Hx Thyroid Disease Cardiovascular History: Denies: Hx Congestive Heart Failure, Hx Deep Vein Thrombosis, Hx Hypertension , Hx Myocardial Infarction, Hx Pacemaker/ICD, Other Cardiovascular Problems/ Disorders Respiratory History: Reports: Hx Asthma, Other Respiratory Problems/Disorders - allergies to pets and outdoor allergens Denies: Hx Chronic Obstructive Pulmonary Disease (COPD), Hx Lung Cancer, Hx Pneumonia, Hx Pulmonary Embolism GI History: Denies: Hx Gall Bladder Disease, Hx Gastrointestinal Bleed, Hx Ulcer, Hx Urosepsis History: Denies: Hx Kidney Stones, Hx Renal Disease Sensory History: Reports: Hx Contacts or Glasses - glasses Denies: Hx Hearing Aid Opthamlomology History: Reports: Hx Contacts or Glasses - glasses Neurological History: Reports: Hx Headaches Denies: Hx Dementia, Hx Migraine, Hx Seizures, Hx Transient Ischemic Attacks (TIA) Psychiatric History: Denies: Hx Anxiety, Hx Depression, Hx Schizophrenia, Hx Bipolar Disorder, Hx of Violent Episodes Against Others - Surgical History Surgery Procedure, Year, and Place: 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 Hx Anesthesia Reactions: No Infectious Disease History: No Infectious Disease History: Denies: Traveled Outside the [place] in Last 30 Days - Family History Known Family History: Positive: Hypertension Negative: Cardiac Disease - Social History Occupation: Employed Full-time Lives: Dormitory/Roommates - significant other Alcohol Use: Rare Hx Substance Use: No Substance Use Type: Reports: None Hx Tobacco Use: No Smoking Status (MU): Never Smoked Tobacco Review of Systems Eyes: Other - pos: L eye pain Positive: Photophobia, Other - pos: intermittent flashing light in corner of L eye. Negative: Blurred Vision, Diplopia Positive: Headache All Other Systems Reviewed And Are Negative: Yes Physical Exam - Summary Physical Exam Summary: Constitutional: Well-developed, Well-nourished, Alert. (-) Distressed Skin: Warm, Dry HENT: Normocephalic; Atraumatic Eyes: Conjunctiva normal Neck: Musculoskeletal ROM normal neck. (-) JVD, (-) Stridor, (-) Tracheal deviation Cardio: Rhythm regular, rate normal, Heart sounds normal; Intact distal pulses; The pedal pulses are 2+ and symmetric. Radial pulses are 2+ and symmetric. (-) Murmur Pulmonary/Chest wall: Effort normal. (-) Respiratory distress, (-) Wheezes, (-) Rales Abd: Soft, (-) tenderness, (-) Distension, (-) Guarding, (-) Rebound Musculoskeletal: (-) Edema Lymph: (-) Cervical adenopathy Neuro: Alert, Oriented x3 Psych: Mood and affect Normal Triage Information Reviewed: Yes Vital Signs On Initial Exam: Initial Vitals Temp Pulse Resp BP Pulse Ox 98.4 F 77 16 137/86 98 09/10/18 12:34 09/10/18 12:34 09/10/18 12:34 09/10/18 12:34 09/10/18 12:34 Vital Signs Reviewed: Yes Diagnostics - Vital Signs Vital Signs Temp Pulse Resp BP Pulse Ox 09/10/18 12:34 98.4 F 77 16 137/86 98 - Laboratory Lab Statement: Any lab studies that have been ordered have been reviewed, and results considered in the medical decision making process. EENT Course/Dx - Course Course Of Treatment: Patient is a 33 y/o F presenting with constant L eye pain onset 08/31/18. Associated sx: intermittent flashes of light in the corner of her L eye, REESE and photophobia. She denies vision changes otherwise. Consulted with Dr. Escalera optgaston, at Dr. Haque's office who says to send patient to the office now. Will discharge patient to f/u with Dr. Escalera. - Diagnoses Provider Diagnoses: Left eye pain - Provider Notifications Discussed Care Of Patient With: Lori Escalera - opthamology Time Discussed With Above Provider: 13:55 Instructed by Provider To: Send To Office Now Discharge - Sign-Out/Discharge Documenting (check all that apply): Patient Departure - D/C Patient Received Moderate/Deep Sedation with Procedure: No - Discharge Plan Condition: Stable Disposition: HOME Patient Education Materials: Eye Pain (ED) Print Language: ANGUILLAN Referrals: Erwin Hampton MD [Primary Care Provider] - Lori Escalera [Medical Doctor] - Additional Instructions: Go to Dr. Escalera's office today. They are expecting you by 2:45pm. - Billing Disposition and Condition Condition: STABLE Disposition: Home - Attestation Statements Document Initiated by Scribe: Yes Documenting Scribe: Valentin Ricardo Provider For Whom Scribe is Documenting (Include Credential): Dr. Michelle Bryant MD Scribe Attestation: I, kate Amayaed for Dr. Michelle Bryant MD on at 1602. Scribe Documentation Reviewed: Yes Provider Attestation: The documentation as recorded by the Valentin vela accurately reflects the service I personally performed and the decisions made by me, Dr. Michelle Bryant MD Status of Scribe Document: Viewed
[2018-09-10 14:24] VITALS: BP 118/74
== END 2018-09-10 14:24 | disposition home or self-care (01) ==
LOC: ED 12:26
DX: H57.12 Ocular pain, left eye (principal)
CPT/HCPCS: 99282

== ENCOUNTER 2018-11-22 20:08 | Emergency (ER) | payer OTHER ==
--- OUTSIDE RECORDS SUMMARY | 2018-11-22 20:20 | XMS REPORT | Continuity of Care Document ---
:1985 External Reference #:[id number] Author Name Lalito Orellana M.D. Address [address] [place] [address] Care Team Providers Name Role Phone Erwin Hampton M.D. Primary Care Physician Unavailable Payers Date Identification Numbers Payment Provider Subscriber Policy Number: [id number] [employer] [place] Kenzie Gerard PayID: [id number] [address] [place] [address] Problems Active Problems Provider Date Seasonal allergy Onset: Asthma Onset: Pain in eye Lalito Orellana M.D. 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 M.D. Suspension Taper as Directed Symbicort Unknown 160-4.5mcg/Act Aerosol Ventolin HFA Unknown 108(90Base) mcg/Act Aerosol Epinephrine use as directed Unknown 0.3mg/0.3ML Solution Auto-Inject Fluticasone Propionate Inhale 2 Sprays Unknown Into Each Nostril 50mcg/Act Suspension Every Day Zyrtec Allergy as needed Unknown 10mg Capsules Procedures Date Code Description Status 09/10/2018 80218 New Patient Comprehensive Exam Completed Encounters Type Date Location Provider Dx Diagnosis Office Visit 10/21/2018 Usama Haque, Lalito Orellana, H57.12 Ocular pain, left 1:45p , [facility] Plan of Treatment 10/28/2018 - Lalito Orellana M.D.H57.12 Ocular pain, left eyeComments:Smoking can increase the risk of developing or worsening any eye related disease, as well as affect your overall health. If you are a smoker, we strongly recommend that you quit.If you are not a smoker, we strongly recommend that you do not start. USE THE PREDNISOLONE DROP: USE 1 DROP 4 TIMES A DAY TO THE LEFT EYE FOR 1 WEEK. THEN DECREASE TO 1 DROP 3 TIMES A DAY TO THE LEFT EYE FOR 1 WEEKTHEN DECREASE TO 1 DROP 2 TIMES A DAY TO THE LEFT EYE FOR 1 WEEKTHEN DECREASE TO 1 DROP ONCE A DAY TO THE LEFT EYE FOR 1 WEEKFollow up:1 Month Follow Up At your next visit, we are not planning to dilate your eyes. However, if you have any changes in your vision or new symptoms, there are certain situations that require us to dilate your eyes. If Dr. Orellana requests any additional testing , that may require extra time. If you have any questions before your next appointment, please call our office at .
--- NOTE | 2018-11-22 21:04 | ED ---
Lower Extremity - HPI Summary HPI Summary: 33 yo female presents to [facility] with right anterior leg pain since last night. She tells me that late last night she was laying in bed and developed spontaneous anterior right lower leg pain that has continued into today. Worse with ambulation. She has not taken anything OTC for her discomfort. Denies injury. No recent travel. She does not smoke. No SOB, chest pain, or difficulty breathing. - History of Current Complaint Chief Complaint: EDExtremityLower Stated Complaint: "RT LEG PAIN PER PT" Time Seen by Provider: 11/22/18 21:04 Hx Obtained From: Patient Hx Last Menstrual Period: 07/22/16 Severity Initially: Severe Severity Currently: Severe Pain Intensity: 10 - Allergies/Home Medications Allergies/Adverse Reactions: Allergies Allergy/AdvReac Type Severity Reaction Status Date / Time Tree Nuts Allergy anaphylaxis Verified 11/22/18 20:13 Home Medications: Home Medications prednisoLONE 1% OPHTH.SUSP* [Pred Forte 1%*] 1 drop LEFT EYE DAILY 11/22/18 [ History Confirmed 11/22/18] PMH/Surg Hx/FS Hx/Imm Hx Endocrine/Hematology History: Denies: Hx Anticoagulant Therapy, Hx Diabetes, Hx Thyroid Disease, Hx Anemia Cardiovascular History: Denies: Hx Congestive Heart Failure, Hx Deep Vein Thrombosis, Hx Hypertension , Hx Myocardial Infarction, Hx Pacemaker/ICD, Other Cardiovascular Problems/ Disorders Respiratory History: Reports: Hx Asthma, Other Respiratory Problems/Disorders - allergies to pets and outdoor allergens Denies: Hx Chronic Obstructive Pulmonary Disease (COPD), Hx Lung Cancer, Hx Pneumonia, Hx Pulmonary Embolism GI History: Denies: Hx Gall Bladder Disease, Hx Gastrointestinal Bleed, Hx Ulcer, Hx Urosepsis History: Denies: Hx Dialysis, Hx Kidney Stones, Hx Renal Disease Sensory History: Reports: Hx Contacts or Glasses - glasses Denies: Hx Hearing Aid Opthamlomology History: Reports: Hx Contacts or Glasses - glasses Neurological History: Reports: Hx Headaches Denies: Hx Dementia, Hx Migraine, Hx Seizures, Hx Transient Ischemic Attacks (TIA) Psychiatric History: Denies: Hx Anxiety, Hx Depression, Hx Panic Disorder, Hx Schizophrenia, Hx Bipolar Disorder, Hx of Violent Episodes Against Others - Surgical History Surgical History: Yes Surgery Procedure, Year, and Place: 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 Hx Anesthesia Reactions: No Infectious Disease History: No Infectious Disease History: Denies: Traveled Outside the [place] in Last 30 Days - Family History Known Family History: Positive: Hypertension Negative: Cardiac Disease - Social History Lives: With Family Alcohol Use: Rare Hx Substance Use: No Substance Use Type: Reports: None Hx Tobacco Use: No Smoking Status (MU): Never Smoked Tobacco Review of Systems Constitutional: Negative Cardiovascular: Negative Respiratory: Negative Gastrointestinal: Negative Genitourinary: Negative Musculoskeletal: Other - right marion pain Skin: Negative Neurological: Negative Psychological: Normal All Other Systems Reviewed And Are Negative: Yes Physical Exam - Summary Physical Exam Summary: GENERAL: NAD. WDWN. No pain distress. Sitting comfortably on stretcher playing on phone SKIN: No rashes, sores, lesions, or open wounds. No erythema, abscess, or induration/cellulitis at site. CHEST: No accessory muscle use. Breathing comfortably and in no distress. CV: Pulses intact PT and DP. Cap refill <2seconds MSK: RIGHT LOWER LEG: Mild TTP over mid anterior tibia. Strength 5/5. No edema or obvious bony deformities. FROM without pain at right knee and ankle. Negative demar. NEURO: Alert. Sensations intact and symmetric B/L LEs PSYCH: Age appropriate behavior. Triage Information Reviewed: Yes Vital Signs On Initial Exam: Initial Vitals Temp Pulse Resp BP Pulse Ox 98.9 F 95 16 127/77 98 11/22/18 20:10 11/22/18 20:10 11/22/18 20:10 11/22/18 20:10 11/22/18 20:10 Vital Signs Reviewed: Yes Diagnostics - Vital Signs Vital Signs Temp Pulse Resp BP Pulse Ox 11/22/18 20:10 98.9 F 95 16 127/77 98 - Laboratory Lab Results: Laboratory Tests 11/22/18 21:32 D-Dimer, Quantitative 210 Lab Statement: Any lab studies that have been ordered have been reviewed, and results considered in the medical decision making process. - CT Right leg CT Interpretation Completed By: Radiologist Summary of CT Findings: IMPRESSION: There may be small osteochondroma or chronic periostitis involving the lateral. cortex of the shaft of the tibia which is bony protuberance measuring 8 x 5 mm. in cross section and 27 mm length. No mass lesion in this location and no signs. of aggressive bony lesion in this location. Lower Extremity Course/Dx - Course Course Of Treatment: XR right tib/fib: wet red with ?bony lesion on tibia. Discussed with pt and she agrees to CT to further assess. CT findings as above. D-dimer not elevated and low suspicion for DVT at this time. Richie's score 0. Discussed with pt and advised f/u with Orthopedics to establish stability of suspected benign bone tumor. She was offered toradol in the ED, but declined and wished to take ibuprofen. Advised to rest, ice, and elevate her leg. - Diagnoses Provider Diagnoses: Bone tumor, Pain in right marion Discharge - Sign-Out/Discharge Documenting (check all that apply): Patient Departure Patient Received Moderate/Deep Sedation with Procedure: No - Discharge Plan Condition: Stable Disposition: HOME Patient Education Materials: Benign Bone Tumor (DC) Referrals: Erwin Hampton MD [Primary Care Provider] - Cristo Romo MD [Medical Doctor] - As Soon As Possible Additional Instructions: If you develop a fever, shortness of breath, chest pain, new or worsening symptoms - please call your PCP or go to the ED immediately. There appears to be a small benign (non-cancerous) growth on your bone. I recommend that you rest, ice, and elevate your leg to decrease pain and call Orthopedics at the number below to schedule a follow up within 1 week for a recheck - Billing Disposition and Condition Condition: STABLE Disposition: Home
[2018-11-22] MEDS ORDERED: Ibuprofen TAB* 600 MG PO ONE (23:45)
[2018-11-23 00:08] VITALS: BP 137/89
== END 2018-11-23 | disposition home or self-care (01) ==
LOC: ED 20:08
DX: M79.661 Pain in right lower leg (principal); D49.2 Neoplasm of unspecified behavior of bone, soft tissue, and skin; J45.909 Unspecified asthma, uncomplicated
CPT/HCPCS: 36415; 85379; 99282; A9270-GY

== ENCOUNTER 2018-12-22 15:15 | Emergency (ER) | payer OTHER ==
--- OUTSIDE RECORDS SUMMARY | 2018-12-22 15:55 | XMS REPORT | Summary of Care ---
:1985 Author Organization [facility] Address [address] [facility] [place] [address] Care Team Providers Name Role Phone Avitia Ehsan Brito DO Primary Care Provider Reason for Visit Reason Comments Follow-up SXD Encounter Details Date Type Department Care Team Description 12/09/2018 Office Visit [facility], Obesity, Class III, BMI 40-49.9 (morbid obesity) ([facility]) (Primary Dx); Bariatrics - Lisset Fajardo MD Pain of lower extremity, unspecified laterality; [address] [facility] [place] [facility] [place]HELSE[place] (obstructive sleep apnea); [address] [place] [address] Elevated hemoglobin A1c [place] [address] Allergies Active Allergy Reactions Severity Noted Date Comments Environmental Other 09/27/2017 Asthma, runny nose Mold Respiratory Reaction 11/01/2017 Nuts Anaphylaxis High 09/27/2017 Tree Nuts documented as of this encounter (statuses as of 12/11/2018) Medications Medication Sig Dispensed Refills Start Date End Date Status budesonide-formoterol Take 2 INHL by 0 Active fumarate (SYMBICORT) inhalation TWICE 160-4.5 MCG/ACT DAILY. Inhalation Aerosol Albuterol Sulfate Take by 0 Active (VENTOLIN HFA IN) inhalation. EPINEPHrine (EPIPEN IJ) by Injection 0 Active route. FLUTICASONE FUROATE IN Take by 0 Active inhalation. Cetirizine HCl (ZYRTEC Take 10 mg by 0 Active PO) mouth. prednisoLONE acetate 1 Drop FOUR TIMES 0 Active (PRED FORTE) 1 % DAILY. Ophthalmic Suspension Cholecalciferol Take 1 Tab by 8 Tab 1 11/11/2018 Active (VITAMIN D3) 146[address] mouth EVERY 7 units Oral Tab DAYS. documented as of this encounter (statuses as of 12/11/2018) Active Problems Problem Noted Date Obesity, Class III, BMI 40-49.9 (morbid obesity) 11/01/2017 CHELSEY (obstructive sleep apnea) 11/01/2017 Stress 11/01/2017 documented as of this encounter (statuses as of 12/11/2018) Immunizations Name Administration Dates Next Due TDAP Vaccine 11/03/2018 documented as of this encounter Social History Tobacco Use Types Packs/Day Years Used Date Never Smoker Smokeless Tobacco: Never Used Alcohol Use Drinks/Week oz/Week Comments Not Currently Sex Assigned at Date Recorded Not on file Job Start Date Occupation Industry Not on file Not on file Not on file Travel History Travel Start Travel End No recent travel history available. documented as of this encounter Last Filed Vital Signs Vital Sign Reading Time Taken Comments Blood Pressure 112/76 12/09/2018 10:51 AM EDT Pulse 91 12/09/2018 10:51 AM EDT Temperature - - Respiratory Rate - - Oxygen Saturation 98% 12/09/2018 10:51 AM EDT Inhaled Oxygen Concentration - - Weight 115.8 kg (255 lb 6.4 oz) 12/09/2018 10:51 AM EDT Height 160 cm (5' 3") 12/09/2018 10:51 AM EDT Body Mass Index 45.24 12/09/2018 10:51 AM EDT documented in this encounter Progress Notes Tana Perera MD - 12/09/2018 11:00 AM EDT PATIENT: Kenzie Gerard : 1985 DATE OF SERVICE: 12/09/2018 REFERRING PRACTITIONER: Other PRIMARY CARE PROVIDER: Ehsan Avitia Chief Complaint Patient presents with Follow-up SXD HISTORY OF PRESENT ILLNESS: Kenzie Gerard is a 33-y.o. female who presents for follow up treatment of obesity and related diseases. She reports that she went to the ED with right leg pain and xray showed a bone tumor. Her dietary compliance as reported is fair. The patient is not skipping meals. She is keeping a consistent food journal. She is eating about 800 to 1000 calories per day. She is generally getting adequate protein. The patient reports not a lot of exercise due to diffuse joint pain. She has an appointment with rheumatology but the earliest she could be seen is the end of March. Past Medical History: Diagnosis Date Asthma Back pain Irregular periods/menstrual cycles CHELSEY (obstructive sleep apnea) on cpap No past surgical history on file. Family History Problem Relation Age of Onset Depression/Depressed Sister Asthma Brother Social History Tobacco Use Smoking status: Never Smoker Smokeless tobacco: Never Used Substance Use Topics Alcohol use: Not Currently Current Outpatient Medications Medication Sig Albuterol Sulfate (VENTOLIN HFA IN) Take by inhalation. budesonide-formoterol fumarate (SYMBICORT) 160-4.5 MCG/ACT Inhalation Aerosol Take 2 INHL by inhalation TWICE DAILY. Cetirizine HCl (ZYRTEC PO) Take 10 mg by mouth. Cholecalciferol (VITAMIN D3) 89032 units Oral Tab Take 1 Tab by mouth EVERY 7 DAYS. EPINEPHrine (EPIPEN IJ) by Injection route. FLUTICASONE FUROATE IN Take by inhalation. prednisoLONE acetate (PRED FORTE) 1 % Ophthalmic Suspension 1 Drop FOUR TIMES DAILY. No current facility-administered medications for this visit. Allergies Allergen Reactions Nuts Anaphylaxis Tree Nuts Environmental Other Asthma, runny nose Mold Respiratory Reaction REVIEW OF SYSTEMS: CONSTITUTIONAL: Negative RESPIRATORY: Negative CARDIOVASCULAR: Negative GASTROINTESTINAL: Negative. GENITOURINARY:Negative MUSCULOSKELETAL: Negative NEUROLOGICAL: Negative. PSYCH: Negative. There are no exam notes on file for this visit. PHYSICAL EXAMINATION: VITALS: BP 112/76 | Pulse 91 | Ht 5' 3" (1.6 m) | Wt 255 lb 6.4 oz (115.8 kg ) | SpO2 98% | ? No | BMI 45.24 kg/m BODY COMPOSITION AND MEASUREMENTS: BODY COMPOSITION HISTORY Body Composition 11/04/2018 11/11/2018 12/09/2018 Weight 253 lb 249 lb 6.4 oz 255 lb 6.4 oz LEAN BODY MASS (lbs) - 120.2 124.3 BODY FAT MASS (lbs) - 129.2 131.2 BMI (Calculated) 44.82 44.18 45.24 Body Fat % - 51.8 51.3 BASAL METABOLIC RATE (kcal) - 1548 1588 EXCESS BODY FAT (lbs) - 93.3 93.9 VISCERAL FAT AREA (cm2) - 269.9 265 LEAN BODY MASS DEFICIT (lbs) - 0 0 NECK CIRCUMFERENCE (in) - - - WAIST CIRCUMFERENCE (in) - - - HIP CIRCUMFERENCE (in) - - - GENERAL: No acute distress; morbidly obese PULMONARY: Clear to auscultation bilaterally CARDIOVASCULAR: Regular rate and rhythm; no murmurs, no rubs, no gallops ABDOMEN: Soft, non tender, no organomegaly, no masses appreciated. truncal adiposity present MUSCULOSKELETAL: no clubbing, cyanosis or edema NEUROLOGICAL: Alert and oriented x 3 PSYCH: Appropriate mood and affect LABORATORY STUDIES: Triglycerides Date Value Ref Range Status 11/03/2018 74 <150 mg/dl Final HDL Cholesterol Date Value Ref Range Status 11/03/2018 51 >50 mg/dl Final LDL Cholesterol Date Value Ref Range Status 11/03/2018 106 <100 MG/DL Final TSH Date Value Ref Range Status 11/03/2018 1.48 0.47 - 4.68 uIu/ml Final IMPRESSION: ICD-9-CM ICD-10-CM 1. Obesity, Class III, BMI 40-49.9 (morbid obesity) (HCC) 278.01 E66.01 2. Pain of lower extremity, unspecified laterality 729.5 M79.606 3. CHELSEY (obstructive sleep apnea) 327.23 G47.33 4. Elevated hemoglobin A1c 790.29 R73.09 PLAN: Kenzie Gerard is a 33-y.o. year-old female with Body mass index is 45.24 kg/ m.. Obesity Class III Weight is increased 6.0 lbs in the interim; this reflects a(n) increase in lean body mass of 4.1 lbs(3.1 lbs of which was total body water) and increase in fat mass of 2.0 lbs Continue with 1100 calories per day; 30 g protein per meal; 30 g carbs per meal Moderate intensity exercise for 30 minutes, at least 5 days per week as she is able to. ? Bone tumor on right leg Will request records Elevated A1c - 5.8 Carb restriction and exercise as above Sleep apnea Consistent use of CPAP Weight loss Follow up: 4 weeks Author: Tana Perera MD 12/11/2018 14:47 documented in this encounter Plan of Treatment Date Type Specialty Care Team Description 01/06/2019 Office Visit Bariatrics Geeta Wagoner, RD 1 [place] [id number] 01/06/2019 Office Visit Bariatrics Keyon Escamilla, PhD [address] [place] [id number] 01/06/2019 Bariatric Surg Bariatrics Nurse/clinical support 01/09/2019 Hospital Encounter Nehemiah Barbosa MD Short Procedure 1 [place] [id number] 01/09/2019 Surgery Nehemiah Barbosa MD ENDOSCOPY UPPER GI 1 [place] [id number] 01/09/2019 GI Procedure Gastroenterology Nehemiah Barbosa MD [address] [place] [id number] 01/19/2019 Office Visit Bariatrics Tana Perera MD [address] [place] [id number] Health Maintenance Due Date Last Done Comments PAP SMEAR 1985 INFLUENZA VACCINE (#1) 2019 DEPRESSION SCREENING 11/04/2019 11/03/2018, 11/03/2018 HPV IMMUNIZATION SERIES Aged Out No longer eligible based on patient's age to complete this topic MENINGOCOCCAL VACCINE IMM Aged Out No longer eligible based on patient's age to complete this topic PNEUMOCOCCAL 0-64 YRS Aged Out No longer eligible based on patient's age to complete this topic documented as of this encounter Results Not on filedocumented in this encounter Visit Diagnoses Diagnosis Obesity, Class III, BMI 40-49.9 (morbid obesity) (HCC) - Primary Morbid obesity Pain of lower extremity, unspecified laterality CHELSEY (obstructive sleep apnea) Obstructive sleep apnea (adult) (pediatric) Elevated hemoglobin A1c Other abnormal blood chemistry documented in this encounter documented as of this encounter
--- OUTSIDE RECORDS SUMMARY | 2018-12-22 15:55 | XMS REPORT | Continuity of Care Document ---
:1985 External Reference #:[id number] Author Name Lalito Orellana M.D. Address [address] [place] [address] Care Team Providers Name Role Phone Erwin Hampotn M.D. - Family Care Team Information Manager Validation Medicine Problems Active Problems Provider Date Seasonal allergy Onset: Asthma Onset: Pain in eye Lalito Orellana M.D. Onset: 09/10/2018 Social History Type Date Description Comments Sex Unknown ETOH Use Denies alcohol use Tobacco Use Start: Unknown Patient has never smoked Recreational Drug Use Denies Drug Use Smoking Status Reviewed: 12/09/18 Patient has never smoked Allergies, Adverse Reactions, Alerts Active Allergies Reaction Severity Comments Date Tree Nuts 09/10/2018 Medications Active Medications SIG Qnty Indications Ordering Provider Date Symbicort Unknown 160-4.5mcg/Act Aerosol Ventolin HFA Unknown 108(90Base) mcg/Act Aerosol Epinephrine use as directed Unknown 0.3mg/0.3ML Solution Auto-Inject Fluticasone Inhale 2 Sprays Unknown Propionate Into Each Nostril 50mcg/Act Every Day Suspension Zyrtec Allergy as needed Unknown 10mg Capsules History Medications Prednisolone Acetate 1 Drop, Left Eye 10ml H57.12 Lalito Orellana, 2018 - 1% Every 2 Hours. M.D. 12/01/2018 Suspension Taper as Directed Immunizations Description No Information Available Vital Signs Description No Information Available Results Description No Information Available Procedures Date Code Description Status 09/10/2018 89080 New Patient Comprehensive Exam Completed Medical Devices Description No Information Available Encounters Type Date Location Provider Dx Diagnosis Office Visit 10/28/2018 Usama Haque Lalito Orellana, H57.12 Ocular pain, left 8:00a pedro LANDAVERDE M.D. eye Office Visit 10/21/2018 Usama Alisha Haque, Lalito Orellana, H57.12 Ocular pain, left 1:45p pedro LANDAVERDE M.D. eye Assessments Date Code Description Provider 12/09/2018 Luisito7.12 Ocular pain, left eye Lalito Orellana M.D. 10/28/2018 H57.12 Ocular pain, left eye Lalito Orellana M.D. 10/21/2018 H57.12 Ocular pain, left eye Lalito Orellana M.D. 09/10/2018 H57.12 Ocular pain, left eye Lalito Orellana M.D. Plan of Treatment 12/09/2018 - Lalito Orellana M.D.H57.12 Ocular pain, left eyeComments:Smoking can increase the risk of developing or worsening any eye related disease, as well as affect your overall health. If you are a smoker, we strongly recommend that you quit.If you are not a smoker, we strongly recommend that you do not start. CALL THE OFFICE IF ANY SYMPTOMS RETURN TO SCHEDULE AN APPOINTMENT.Follow up:2 Year Follow Up DFE You can expect to have your eyes dilated at your next visit. If Dr. Orellana orders any additional testing, it may require extra time. We recommend that you bring sunglasses, as dilation drops often make you light sensitive until they wear off. We always recommend you bring someone to drive you home if you are uncomfortable driving with your eyes dilated. If you have any questions before your next visit, feel free to call our office at . Functional Status Description No Information Available Mental Status Description No Information Available Referrals Description No Information Available
[2018-12-22 17:53] VITALS: BP 136/84
--- NOTE | 2018-12-23 08:21 | ED ---
Lower Extremity - HPI Summary HPI Summary: Patient is a 33-year-old female who presents emergency department for a left ankle injury that occurred today at work. Patient states she stepped off of a curb and twisted left ankle. No other injuries were sustained. Patient can ambulate with pain. Symptoms are mild in severity. No current modifying factors. - History of Current Complaint Chief Complaint: EDExtremityLower Stated Complaint: FALL AT WORK LEFT LEG INJURY Time Seen by Provider: 12/22/18 16:16 Hx Obtained From: Patient Hx Last Menstrual Period: 07/22/16 Pain Intensity: 8 Pain Scale Used: 0-10 Numeric - Allergies/Home Medications Allergies/Adverse Reactions: Allergies Allergy/AdvReac Type Severity Reaction Status Date / Time Tree Nuts Allergy anaphylaxis Verified 12/09/18 12:49 PMH/Surg Hx/FS Hx/Imm Hx Previously Healthy: Yes Endocrine/Hematology History: Denies: Hx Anticoagulant Therapy, Hx Diabetes, Hx Thyroid Disease, Hx Anemia Cardiovascular History: Denies: Hx Congestive Heart Failure, Hx Deep Vein Thrombosis, Hx Hypertension , Hx Myocardial Infarction, Hx Pacemaker/ICD, Other Cardiovascular Problems/ Disorders Respiratory History: Reports: Hx Asthma, Other Respiratory Problems/Disorders - allergies to pets and outdoor allergens Denies: Hx Chronic Obstructive Pulmonary Disease (COPD), Hx Lung Cancer, Hx Pneumonia, Hx Pulmonary Embolism GI History: Denies: Hx Gall Bladder Disease, Hx Gastrointestinal Bleed, Hx Ulcer, Hx Urosepsis History: Denies: Hx Dialysis, Hx Kidney Stones, Hx Renal Disease Sensory History: Reports: Hx Contacts or Glasses - glasses Denies: Hx Hearing Aid Opthamlomology History: Reports: Hx Contacts or Glasses - glasses Neurological History: Reports: Hx Headaches Denies: Hx Dementia, Hx Migraine, Hx Seizures, Hx Transient Ischemic Attacks (TIA) Psychiatric History: Denies: Hx Anxiety, Hx Depression, Hx Panic Disorder, Hx Schizophrenia, Hx Bipolar Disorder, Hx of Violent Episodes Against Others - Surgical History Surgery Procedure, Year, and Place: 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 LEFT WRIST CYST REMOVAL 06/2017. Hx Anesthesia Reactions: No Infectious Disease History: No Infectious Disease History: Denies: Traveled Outside the [place] in Last 30 Days - Family History Known Family History: Positive: None, Hypertension, Non-Contributory Negative: Cardiac Disease - Social History Occupation: Employed Full-time Lives: With Family Alcohol Use: Rare Hx Substance Use: No Substance Use Type: Reports: None Hx Tobacco Use: No Smoking Status (MU): Never Smoked Tobacco Review of Systems Positive: Other - pain to left ankle Skin: Negative Neurological: Negative Negative: Weakness, Paresthesia, Numbness All Other Systems Reviewed And Are Negative: Yes Physical Exam Triage Information Reviewed: Yes Vital Signs On Initial Exam: Initial Vitals Temp Pulse Resp BP Pulse Ox 99.4 F 97 18 110/86 97 12/22/18 15:17 12/22/18 15:17 12/22/18 15:17 12/22/18 15:17 12/22/18 15:17 Vital Signs Reviewed: Yes Appearance: Positive: Well-Appearing - Pt. lying on bed with headphones in looking at cellphone. Friend present. Skin: Positive: Warm, Dry Head/Face: Positive: Normal Head/Face Inspection Eyes: Positive: Normal, EOMI Neck: Positive: Supple Musculoskeletal: Positive: Other - Mild left lateral malleolus edema with pain. Achilles intact. No pain to base of 5th metatarsal. Mild proximal tib/fib pain. No breaks in the skin. Good pedal pulse. Neurological: Positive: Normal, CN Intact II-III Psychiatric: Positive: Affect/Mood Appropriate Diagnostics - Vital Signs Vital Signs Temp Pulse Resp BP Pulse Ox 12/22/18 17:53 97.9 F 68 16 136/84 99 12/22/18 15:17 99.4 F 97 18 110/86 97 - Laboratory Lab Statement: Any lab studies that have been ordered have been reviewed, and results considered in the medical decision making process. Lower Extremity Course/Dx - Course Course Of Treatment: Patient presenting with minor left ankle injury. X-rays negative for fracture dislocation per radiology. Patient declined Tylenol or Motrin sitting very do not help with pain. Air splint was initially placed but did not, and a patient's so Flako wrap placed. Patient will follow-up with PCP if pain persists. Ice and elevate. Tylenol or Motrin for pain as directed. - Diagnoses Differential Diagnosis/HQI/PQRI: Positive: Fracture (Closed), Sprain, Strain Provider Diagnoses: Ankle sprain Discharge - Sign-Out/Discharge Documenting (check all that apply): Patient Departure Patient Received Moderate/Deep Sedation with Procedure: No - Discharge Plan Condition: Good Disposition: HOME Patient Education Materials: Ankle Sprain (ED) Forms: *Work Release Referrals: Erwin Hampton MD [Primary Care Provider] - Additional Instructions: Follow up with PCP if pain persist Ice and elevate Splint for comfort Tylenol or Motrin for pain as directed Return to ER if symptoms change or worsen - Billing Disposition and Condition Condition: GOOD Disposition: Home
== END 2018-12-22 17:53 | disposition home or self-care (01) ==
LOC: ED 15:15
DX: S93.402A Sprain of unspecified ligament of left ankle, initial encounter (principal); X50.9XXA Other and unspecified overexertion or strenuous movements or postures, initial encounter; Y92.89 Other specified places as the place of occurrence of the external cause; Y99.0 Civilian activity done for income or pay; J45.909 Unspecified asthma, uncomplicated
CPT/HCPCS: 99281

== ENCOUNTER 2022-12-23 00:11 | Inpatient (IN) ==
[2022-12-23] MEDS ORDERED: Ondansetron 4 mg VIAL 2 MG/ML 2 ml VIAL IV ONE (00:16)
[2022-12-23] MEDS ORDERED: Lactated Ringers 1000 ml BAG 1,000 ML IV ONE (00:17)
[2022-12-23 02:16] LABS: ABS Lymphocytes 0.6 10^3/uL (1.0-4.8); ABS Monocytes 0.7 10^3/uL (0.0-0.9); ABS Nucleated RBC 0.01 10^3/ul; Eosinophil % 0.5 %; Hematocrit 40.8 % (35-45); Hemoglobin 13.9 g/dL (11.5-14.3); Lymphocyte % 6.7 %; Mean Corpuscular Hemoglobin 29.3 pg (27-33); Mean Corpuscular Hgb Conc 34.1 g/dL (31-36); Mean Corpuscular Volume 85.9 fL (80-97); Mean Platelet Volume 7.2 fL (7.5-11.2); Nucleated Red Blood Cells % 0.1 /100 WBC (0.0-0.4); Platelet Count 341 10^3/uL (150-450); Red Blood Count 4.75 10^6/uL (3.63-4.92); Red Cell Distribution Width 14.2 % (12-17); White Blood Count 9.4 10^3/uL (3.8-11.8)
[2022-12-23 02:18] LABS: Urine Appearance Clear; Urine Bilirubin Negative (Negative); Urine Blood Negative (Negative); Urine Color Yellow; Urine Glucose Negative (Negative); Urine Ketones Negative (Negative); Urine Nitrite Negative (Negative); Urine Protein Negative (Negative); Urine Specific Gravity 1.006 (1.002-1.030); Urine Urobilinogen Negative (Negative)
[2022-12-23 02:26] LABS: Urine Bacteria Absent (Absent); Urine Red Blood Cell Trace(0-2/hpf) (Absent); Urine Squamous Epithelial Cell Present (Absent); Urine White Blood Cell Trace(0-5/hpf) (Absent)
[2022-12-23 02:34] LABS: ALT 291 U/L (7-52); AST 460 U/L (13-39); Albumin 4.2 g/dL (3.2-5.2); Albumin/Globulin Ratio 1.2 (1-3); Alkaline Phosphatase 114 U/L (35-149); Anion Gap 7 mmol/L (2-16); Blood Urea Nitrogen 6 mg/dL (6-24); C Reactive Protein 7.97 mg/L (<8.01); CO2 Carbon Dioxide 25 mmol/L (22-32); Calcium 9.2 mg/dL (8.6-10.3); Chloride 104 mmol/L (101-111); Globulin 3.5 g/dL (2-4); Glucose 123 mg/dL (70-100); Potassium 3.7 mmol/L (3.5-5.0); Sodium 136 mmol/L (135-145); Total Protein 7.7 g/dL (6.4-8.9); eGFR CKD-EPI 97.9 (>60)
[2022-12-23 02:35] LABS: Urine Benzodiazepine Screen None Detected (None Detect); Urine Cannabinoids Screen None Detected (None Detect); Urine Opiates Screen Presumptive Positive (None Detect)
[2022-12-23 02:41] LABS: HCG Pregnancy < 0.60 mIU/mL
[2022-12-23 03:11] LABS: Lipase 4943 U/L (11.0-82.0)
[2022-12-23] MEDS ORDERED: Iohexol 300 (CONTRAST) 10 ML SDV IV ONE (04:53)
[2022-12-23] MEDS ORDERED: Morphine 4 MG/ML VIAL (1 ml) IV ONE ×2 (06:02→08:52)
[2022-12-23 06:49] LABS: Triglycerides 88 mg/dL
[2022-12-23] MEDS ORDERED: Senna TAB 8.6 mg TAB PO PRN (08:20)
[2022-12-23] MEDS ORDERED: Polyethylene Glycol 3350 17 GM PACKET PO PRN (08:20)
[2022-12-23 08:50] LABS: Indirect Bilirubin 1.1 mg/dL (0.3-1.0)
[2022-12-23] MEDS: Lactated Ringers 1000 ml BAG 1,000 ML IV SCH ×2 (09:37→15:42)
[2022-12-23] MEDS: Ondansetron 4 mg VIAL 2 MG/ML 2 ml VIAL IV PRN (09:37)
[2022-12-23] MEDS ORDERED: Albuterol HFA INHALER 8 gm MDI INH PRN (10:45)
[2022-12-23] MEDS: HYDROmorphone 0.5 MG/0.5 ML SYRINGE IV SLOW PU PRN ×4 (11:17→23:36)
[2022-12-23 13:44] LABS: Hepatitis B Surface Antigen Nonreactive (Nonreactive)
[2022-12-23 13:49] LABS: Hepatitis A Ab IgM Negative (Negative)
[2022-12-23 13:50] LABS: Hepatitis B Core IgM Nonreactive (Nonreactive)
[2022-12-23 14:02] LABS: Hepatitis C Antibody Negative (Negative)
[2022-12-23] MEDS: CEVIMELINE 30 MG PO SCH ×2 (14:36→21:18)
[2022-12-23] MEDS: Lactated Ringers 1000 ml BAG 1,000 ML IV ONE ×2 (19:28→23:29)
[2022-12-23] MEDS: Mometasone/Formoter 200/5 MDI INH SCH (19:38)
[2022-12-24] MEDS: HYDROmorphone 1 MG/1 ML SYRINGE IV SLOW PU PRN ×2 (05:09→18:11)
[2022-12-24] MEDS: Mometasone/Formoter 200/5 MDI INH SCH ×2 (07:53→19:45)
[2022-12-24 08:13] LABS: ABS Eosinophils 0.1 10^3/uL (0.0-0.5); ABS Lymphocytes 1.5 10^3/uL (1.0-4.8); ABS Monocytes 0.8 10^3/uL (0.0-0.9); ABS Neutrophils 4.9 10^3/uL (1.5-7.6); ABS Nucleated RBC 0.01 10^3/ul; Eosinophil % 1.8 %; Hematocrit 36.2 % (35-45); Hemoglobin 12.1 g/dL (11.5-14.3); Lymphocyte % 20.2 %; Mean Corpuscular Hemoglobin 28.8 pg (27-33); Mean Corpuscular Hgb Conc 33.3 g/dL (31-36); Mean Corpuscular Volume 86.5 fL (80-97); Mean Platelet Volume 7.6 fL (7.5-11.2); Nucleated Red Blood Cells % 0.1 /100 WBC (0.0-0.4); Platelet Count 282 10^3/uL (150-450); Red Blood Count 4.18 10^6/uL (3.63-4.92); Red Cell Distribution Width 13.8 % (12-17); White Blood Count 7.3 10^3/uL (3.8-11.8)
[2022-12-24 08:27] LABS: Albumin 3.3 g/dL (3.2-5.2); Albumin/Globulin Ratio 1.2 (1-3); Creatinine, Serum 0.72 mg/dL (0.51-0.95); Direct Bilirubin 0.1 mg/dL (0.03-0.18); Globulin 2.8 g/dL (2-4); Indirect Bilirubin 0.7 mg/dL (0.3-1.0); Magnesium 1.6 mg/dL (1.9-2.7); Potassium 3.5 mmol/L (3.5-5.0); Total Bilirubin 0.8 mg/dL (0.2-1.0); Total Protein 6.1 g/dL (6.4-8.9); eGFR CKD-EPI 111.1 (>60)
[2022-12-24] MEDS: Vitamin THERAPEUTIC TAB PO SCH (09:02)
[2022-12-24] MEDS: CEVIMELINE 30 MG PO SCH ×2 (09:03→14:36)
[2022-12-24] MEDS: DULoxetine DR 60 mg CAP PO SCH (09:03)
[2022-12-24] MEDS: Fluticasone NASAL SPRAY 50MCG 16 gm SPRAY BTL BOTH NARES SCH (09:58)
[2022-12-24] MEDS: Lactated Ringers 1000 ml BAG 1,000 ML IV ONE (10:00)
[2022-12-24] MEDS: HYDROmorphone 0.5 MG/0.5 ML SYRINGE IV SLOW PU PRN ×3 (11:06→22:32)
[2022-12-24] MEDS: PTO:Cevimeline 30 mg CAP (NF) PO SCH (22:28)
[2022-12-24] MEDS ORDERED: Lactated Ringers 1000 ml BAG 1,000 ML IV ONE (23:52)
[2022-12-25] MEDS: PTO:Cevimeline 30 mg CAP (NF) PO SCH ×3 (05:49→21:53)
[2022-12-25] MEDS: HYDROmorphone 0.5 MG/0.5 ML SYRINGE IV SLOW PU PRN ×2 (05:52→09:53)
[2022-12-25 06:03] LABS: Albumin 3.3 g/dL (3.2-5.2); Calcium 8.1 mg/dL (8.6-10.3); Magnesium 1.6 mg/dL (1.9-2.7); Potassium 3.6 mmol/L (3.5-5.0)
[2022-12-25 06:09] LABS: Albumin/Globulin Ratio 1.1 (1-3); Creatinine, Serum 0.62 mg/dL (0.51-0.95); Total Protein 6.3 g/dL (6.4-8.9); eGFR CKD-EPI 118.3 (>60)
[2022-12-25 07:07] LABS: ABS Eosinophils 0.1 10^3/uL (0.0-0.5); ABS Lymphocytes 1.2 10^3/uL (1.0-4.8); ABS Monocytes 0.8 10^3/uL (0.0-0.9); ABS Neutrophils 6.2 10^3/uL (1.5-7.6); Hematocrit 33.7 % (35-45); Hemoglobin 11.5 g/dL (11.5-14.3); Lymphocyte % 14.1 %; Mean Corpuscular Hemoglobin 29.2 pg (27-33); Mean Corpuscular Hgb Conc 34.2 g/dL (31-36); Mean Corpuscular Volume 85.4 fL (80-97); Mean Platelet Volume 7.4 fL (7.5-11.2); Platelet Count 281 10^3/uL (150-450); Red Blood Count 3.94 10^6/uL (3.63-4.92); Red Cell Distribution Width 13.8 % (12-17); White Blood Count 8.4 10^3/uL (3.8-11.8)
[2022-12-25] MEDS: Vitamin THERAPEUTIC TAB PO SCH (07:48)
[2022-12-25] MEDS: Fluticasone NASAL SPRAY 50MCG 16 gm SPRAY BTL BOTH NARES SCH (08:15)
[2022-12-25] MEDS: DULoxetine DR 60 mg CAP PO SCH (08:15)
[2022-12-25] MEDS: Mometasone/Formoter 200/5 MDI INH SCH ×2 (08:41→20:02)
[2022-12-25] MEDS: Lactated Ringers 1000 ml BAG 1,000 ML IV SCH ×2 (12:36→19:41)
[2022-12-25] MEDS: HYDROmorphone 1 MG/1 ML SYRINGE IV SLOW PU PRN ×2 (16:19→21:34)
[2022-12-25] MEDS ORDERED: Magnesium Sulfate 2 gm BAG 2 GM/50 ML BAG IVPB ONE (19:24)
[2022-12-25 21:22] LABS: Mitochondria M2 Antibody <0.1 U
[2022-12-25] MEDS: Famotidine IV 10 MG/ML 2 ml VIAL (20 mg) IV SLOW PU SCH (21:33)
[2022-12-26] MEDS: HYDROmorphone 0.5 MG/0.5 ML SYRINGE IV SLOW PU PRN ×4 (02:18→22:14)
[2022-12-26] MEDS: Lactated Ringers 1000 ml BAG 1,000 ML IV SCH (04:17)
[2022-12-26] MEDS: PTO:Cevimeline 30 mg CAP (NF) PO SCH ×3 (05:22→21:53)
[2022-12-26 06:13] LABS: ABS Eosinophils 0.1 10^3/uL (0.0-0.5); ABS Lymphocytes 1.3 10^3/uL (1.0-4.8); ABS Monocytes 0.7 10^3/uL (0.0-0.9); ABS Neutrophils 4.7 10^3/uL (1.5-7.6); ABS Nucleated RBC 0.01 10^3/ul; Eosinophil % 1.7 %; Hematocrit 31.9 % (35-45); Hemoglobin 10.9 g/dL (11.5-14.3); Mean Corpuscular Hemoglobin 29.3 pg (27-33); Mean Corpuscular Hgb Conc 34.3 g/dL (31-36); Mean Corpuscular Volume 85.3 fL (80-97); Mean Platelet Volume 7.6 fL (7.5-11.2); Nucleated Red Blood Cells % 0.1 /100 WBC (0.0-0.4); Platelet Count 274 10^3/uL (150-450); Red Blood Count 3.74 10^6/uL (3.63-4.92); Red Cell Distribution Width 13.9 % (12-17); White Blood Count 6.9 10^3/uL (3.8-11.8)
[2022-12-26 06:38] LABS: Calcium 7.8 mg/dL (8.6-10.3); Creatinine, Serum 0.56 mg/dL (0.51-0.95); Globulin 2.9 g/dL (2-4); Potassium 3.4 mmol/L (3.5-5.0); Total Bilirubin 0.9 mg/dL (0.2-1.0); Total Protein 5.9 g/dL (6.4-8.9); eGFR CKD-EPI 121.2 (>60)
[2022-12-26] MEDS: Mometasone/Formoter 200/5 MDI INH SCH ×2 (07:43→20:01)
[2022-12-26] MEDS ORDERED: HYDROmorphone 1 MG/1 ML SYRINGE IV SLOW PU PRN (08:15)
[2022-12-26 08:39] LABS: Magnesium 1.9 mg/dL (1.9-2.7)
[2022-12-26] MEDS: Fluticasone NASAL SPRAY 50MCG 16 gm SPRAY BTL BOTH NARES SCH (08:51)
[2022-12-26] MEDS: Famotidine IV 10 MG/ML 2 ml VIAL (20 mg) IV SLOW PU SCH ×2 (08:52→21:53)
[2022-12-26] MEDS: Vitamin THERAPEUTIC TAB PO SCH (08:54)
[2022-12-26] MEDS: DULoxetine DR 60 mg CAP PO SCH (08:54)
[2022-12-26] MEDS: KCL 20 MEQ/100 ML IVPREMIX 20 MEQ/100 ML BAG IV SCH ×2 (08:55→11:06)
[2022-12-26] MEDS ORDERED: ceFAZolin 2 GM PREMIX 2 GM/100 ML BAG IVPB ONE (11:00)
[2022-12-26] MEDS ORDERED: ceFAZolin 2 GM/50 ML BAG IV ONE (12:00)
[2022-12-26] MEDS ORDERED: Rocuronium 50 mg VIAL 10 mg/ml 5 ml VIAL (50 mg) ONE ×2 (13:05→16:10)
[2022-12-26] MEDS ORDERED: fentaNYL 250 mcg/5 ml 50 MCG/ML 5 ml VIAL (250 MCG) ONE (13:26)
[2022-12-26] MEDS ORDERED: Ondansetron 4 mg VIAL 2 MG/ML 2 ml VIAL ONE (13:26)
[2022-12-26] MEDS ORDERED: Dexamethasone IV 4 MG/ML VIAL 1 ml VIAL ONE (13:26)
[2022-12-26] MEDS ORDERED: Midazolam 2 mg/2 ml VIAL 1 mg/ml 2 ml VIAL (2 mg) ONE (13:26)
[2022-12-26] MEDS ORDERED: Propofol 10 MG/ML 20 ML BTL ONE (13:26)
[2022-12-26] MEDS ORDERED: Lidocaine 2% PF 5 ML VIAL ONE (13:26)
[2022-12-26] MEDS ORDERED: ceFAZolin 2 GM PREMIX 2 GM/50 ML BAG ONE (13:35)
[2022-12-26] MEDS ORDERED: Bupivacaine 0.5% 50 ML MDV VIAL ONE (14:36)
[2022-12-26] MEDS ORDERED: metroNIDAZOLE IV 500 MG/100ML 500 MG/100 ML BAG ONE (15:46)
[2022-12-26] MEDS ORDERED: fentaNYL 100 mcg/2 ml 50 MCG/ML VIAL IV PRN (15:46)
[2022-12-26] MEDS ORDERED: Ondansetron 4 mg VIAL 2 MG/ML 2 ml VIAL IV PRN (15:46)
[2022-12-26] MEDS ORDERED: Naloxone 0.4 mg VIAL 0.4 mg/ml 1 ml VIAL IV PRN (15:46)
[2022-12-26] MEDS ORDERED: HYDROmorphone 1 MG/1 ML SYRINGE IV PRN (15:46)
[2022-12-26] MEDS ORDERED: Phenylephrine 40 mcg/mL 10mL (400mcg) SYRINGE ONE (16:08)
[2022-12-26] MEDS ORDERED: Labetalol IV 5 MG/ML 20 ml VIAL ONE (16:21)
[2022-12-26] MEDS ORDERED: Acetaminophen IV 1 GM/100ML 1,000 MG/100 ML BAG IV ONE (16:23)
[2022-12-26 18:45] LABS: Liver/Kidney Microsomes Ab <5.0 U
[2022-12-26] MEDS: Ondansetron 4 mg VIAL 2 MG/ML 2 ml VIAL IV PRN (20:53)
[2022-12-27] MEDS: PTO:Cevimeline 30 mg CAP (NF) PO SCH ×3 (05:42→21:36)
[2022-12-27] MEDS: HYDROmorphone 0.5 MG/0.5 ML SYRINGE IV SLOW PU PRN ×2 (05:51→18:22)
[2022-12-27] MEDS: Fluticasone NASAL SPRAY 50MCG 16 gm SPRAY BTL BOTH NARES SCH (08:20)
[2022-12-27] MEDS: DULoxetine DR 60 mg CAP PO SCH (08:21)
[2022-12-27] MEDS: Vitamin THERAPEUTIC TAB PO SCH (08:21)
[2022-12-27] MEDS: Famotidine IV 10 MG/ML 2 ml VIAL (20 mg) IV SLOW PU SCH ×2 (08:21→21:36)
[2022-12-27] MEDS: Mometasone/Formoter 200/5 MDI INH SCH ×2 (09:13→19:20)
[2022-12-27 09:19] LABS: Albumin 3.3 g/dL (3.2-5.2); Creatinine, Serum 0.67 mg/dL (0.51-0.95); Globulin 3.4 g/dL (2-4); Potassium 3.6 mmol/L (3.5-5.0); Total Bilirubin 2.1 mg/dL (0.2-1.0); Total Protein 6.7 g/dL (6.4-8.9); eGFR CKD-EPI 116.1 (>60)
[2022-12-27 09:43] LABS: Indirect Bilirubin 1.1 mg/dL (0.3-1.0)
[2022-12-28] MEDS: Famotidine IV 10 MG/ML 2 ml VIAL (20 mg) IV SLOW PU SCH ×3 (00:06→10:47)
[2022-12-28 06:06] LABS: ABS Eosinophils 0.1 10^3/uL (0.0-0.5); ABS Lymphocytes 1.9 10^3/uL (1.0-4.8); ABS Monocytes 0.8 10^3/uL (0.0-0.9); ABS Neutrophils 4.4 10^3/uL (1.5-7.6); ABS Nucleated RBC 0.01 10^3/ul; Hematocrit 32.9 % (35-45); Hemoglobin 11.3 g/dL (11.5-14.3); Lymphocyte % 26.8 %; Mean Corpuscular Hemoglobin 29.3 pg (27-33); Mean Corpuscular Hgb Conc 34.3 g/dL (31-36); Mean Corpuscular Volume 85.6 fL (80-97); Mean Platelet Volume 7.3 fL (7.5-11.2); Nucleated Red Blood Cells % 0.1 /100 WBC (0.0-0.4); Platelet Count 326 10^3/uL (150-450); Red Blood Count 3.84 10^6/uL (3.63-4.92); Red Cell Distribution Width 13.7 % (12-17); White Blood Count 7.3 10^3/uL (3.8-11.8)
[2022-12-28] MEDS: PTO:Cevimeline 30 mg CAP (NF) PO SCH (06:17)
[2022-12-28 06:27] LABS: Calcium 7.6 mg/dL (8.6-10.3); Creatinine, Serum 0.63 mg/dL (0.51-0.95); Direct Bilirubin 0.1 mg/dL (0.03-0.18); Globulin 3.1 g/dL (2-4); Indirect Bilirubin 0.5 mg/dL (0.3-1.0); Potassium 3.5 mmol/L (3.5-5.0); Total Bilirubin 0.6 mg/dL (0.2-1.0); Total Protein 6.1 g/dL (6.4-8.9); eGFR CKD-EPI 117.8 (>60)
[2022-12-28] MEDS: Mometasone/Formoter 200/5 MDI INH SCH (09:34)
[2022-12-28] MEDS: Fluticasone NASAL SPRAY 50MCG 16 gm SPRAY BTL BOTH NARES SCH (10:01)
[2022-12-28] MEDS: DULoxetine DR 60 mg CAP PO SCH (10:01)
[2022-12-28] MEDS: Vitamin THERAPEUTIC TAB PO SCH (10:04)
[2022-12-28 10:23] VITALS: BP 130/91
== END 2022-12-28 11:21 | disposition home or self-care (01) | DRG 263 ==
LOC: EDHOLD 00:11 → ED 00:11 → OBSVTOIN 08:15 → SUATTDRO 08:15 → SSU 15:26
PROVIDERS: ADMIT Internal Medicine; ATTEND Internal Medicine